=== PATIENT | male | born 1955 | race Caucasian/White ===

== ENCOUNTER 2024-01-24 09:00 | Day surgery (SDC) | payer MEDICARE, SELFPAY ==
--- NOTE | ~2024-01-24 | FL_ITS ---
FLUOROSCOPIC GUIDED LUMBAR PUNCTURE INDICATION: Neuropathy TECHNIQUE: Risks and benefits and possible complications were discussed with the patient and the consent form was signed. Patient was placed prone on the fluoroscopy table. The back was prepped and draped in routine sterile fashion. Betadine was used as a skin antiseptic. Utilizing fluoroscopic guidance, the L4-5 interlaminar space was accessed with a 22 gague quinkie spinal needle and clear CSF fluid obtained. Opening pressure was 12 cm H2O. 8 cc of fluid was sent for analysis. The needle was removed without immediate complications. Total fluoroscopy time: 53 seconds DAP: 623.2 uGym^2 FL/FL guided lumbar puncture LP IMPRESSION: Successful fluoroscopic guided lumbar puncture This procedure was performed by David Howell PA-C and supervised by Dr. Goff. Electronically signed by: Fran Goff MD 01/27/2024 03:11 PM EDT
[2024-01-24 09:32] LABS: MANUAL DIFF FLAG NO
[2024-01-24 09:34] LABS: Glucose, Whole Blood 275 mg/dL (60-115)
[2024-01-24 09:36] LABS: Basophils Absolute Auto 0.1 X10*3/uL (0.0-0.2); Basophils Percent Auto 0.9 % (0-2); Eosinophils Absolute Auto 0.1 X10*3/uL (0.0-0.4); Eosinophils Percent Auto 2.3 % (0-4); Hematocrit 43.1 % (42.0-52.0); Hemoglobin 14.8 g/dl (14.0-18.0); Imm Gran Abs Auto 0.01 X10*3/uL (0.00-0.03); Imm Gran Pct Auto 0.2 % (0.0-0.4); Lymphocytes Absolute Auto 1.9 X10*3/uL (1.2-4.9); Lymphocytes Percent Auto 33.7 % (20-40); Mean Corpuscular HGB Conc 34.3 g/dl (31.0-36.0); Mean Corpuscular Hemoglobin 31.2 pg (27.0-33.0); Mean Corpuscular Volume 90.7 fL (80.0-98.0); Mean Platelet Volume 10.2 fL (9.4-12.4); Monocytes Absolute Auto 0.4 X10*3/uL (0.1-1.2); Monocytes Percent Auto 6.1 % (2-11); Neutrophils Absolute Auto 3.3 x10*3/uL (2.0-8.3); Neutrophils Percent Auto 56.8 % (45-73); Platelet Count 137 X10*3/uL (160-400); Red Blood Count 4.75 X10*6/uL (4.60-5.80); Red Cell Distribution Width 13.3 % (11.0-16.0); White Blood Count 5.8 X10*3/uL (4.8-10.8)
[2024-01-24 09:43] LABS: INTERNATIONAL NORM RATIO 0.9 (0.9-1.1); Prothrombin Time 10.5 SEC (10.9-12.4)
[2024-01-24 09:46] LABS: Partial Thromboplastin Time 32.7 SEC (26.0-36.8)
[2024-01-24 11:45] VITALS: BP 142/89; PULSE 82; RESP 18; TEMP 36.6; O2SAT 97
[2024-01-24 12:00] VITALS: BP 142/88; PULSE 80; RESP 18; O2SAT 97
[2024-01-24 12:15] VITALS: BP 145/91; PULSE 81; RESP 18; O2SAT 95
[2024-01-24 12:30] VITALS: BP 150/81; PULSE 79; RESP 18; O2SAT 95
[2024-01-24 12:45] VITALS: BP 154/84; PULSE 76; RESP 18; TEMP 36.6; O2SAT 97
[2024-01-24 13:39] LABS: Glucose CSF 97 mg/dL; Total Protein CSF 66.4 mg/dL (15-45)
[2024-01-24 13:45] LABS: CSF Appearance Clear, Colorless; CSF Tube # 1
[2024-01-24 14:04] LABS: Appearance CSF CLEAR; CSF Tube # 4; Color CSF COLORLESS; Red Blood Cell CSF 20 MM*3; White Blood Cell CSF 7 MM*3
[2024-01-24 14:05] LABS: CSF Monos 29 %; Lymphocytes CSF 71 %
[2024-01-27 10:59] LABS: Oligoclonal Serum Yes
[2024-01-28 18:19] LABS: Oligoclonal Banding Absent (Absent)
[2024-01-28 22:49] LABS: Albumin 4.2 g/dL (3.6-5.1); Albumin, CSF 42.1 mg/dL (8.0-42.0); IgG 795 mg/dL (600-1540); IgG, CSF 2.7 mg/dL (0.8-7.7)
== END 2024-01-24 13:08 | disposition home or self-care (01) ==
PROVIDERS: Physician Assistant Surgical; Visit Provider Psychiatry & Neurology Neurology
PROC: 009U3ZZ Drainage of Spinal Canal, Percutaneous Approach (ICD-10-PCS; CPT 62270; principal; 2024-01-24 11:00)
DX: G62.9 Polyneuropathy, unspecified (principal); G60.0 Hereditary motor and sensory neuropathy; R26.89 Other abnormalities of gait and mobility; H54.8 Legal blindness, as defined in USA; G43.009 Migraine without aura, not intractable, without status migrainosus; D69.6 Thrombocytopenia, unspecified; I10 Essential (primary) hypertension; E11.9 Type 2 diabetes mellitus without complications; Z79.4 Long term (current) use of insulin; Z79.899 Other long term (current) drug therapy
CPT/HCPCS: 36415; 62328; 82042; 82945; 82947; 83916; 84157; 85025; 85610; 85730; 87015; 87070; 87205; 89051

== ENCOUNTER → 2024-01-24 11:10 | Outpatient (BNV) | payer MEDICARE, SELFPAY | PROVIDERS: Visit Provider Radiology Diagnostic Radiology | DX: G62.9 Polyneuropathy, unspecified (principal) | CPT/HCPCS: 62328 ==

== ENCOUNTER 2024-03-31 13:29 | Outpatient (REF) | payer MEDICARE, MEDICAID, SELFPAY ==
[2024-03-31 15:03] LABS: Erythrocyte Sedimentation Rate 11 MM/HR (0-15)
[2024-04-01 05:02] LABS: Syphilis Screen Nonreactive (Nonreactive)
[2024-04-01 05:37] LABS: HBS Num1 0.53 mIU/mL (0-7.99); HBc Num1 0.05 S/CO (0.00-0.79); HBsAGNum1 0.53 S/CO (0.00-0.99); HIV AB/AG Nonreactive (Nonreactive); HIV Num 1 0.05 S/CO (0.00-0.99); Hepatitis A Antibody IgM 0.14 Index (0-0.79); Hepatitis B Core Antibody Nonreactive (Nonreactive); Hepatitis B Surface Antigen Negative (Negative); ~HepC Num1 0.05 S/CO (0.00-0.79); ~Hepatitis A Antibody IgM Nonreactive (Nonreactive); ~Hepatitis B Surface Antibody NONREACTIVE (Nonreactive); ~Hepatitis C Antibody Nonreactive (Nonreactive)
[2024-04-01 17:54] LABS: Lyme Abs Screen <0.90 index
[2024-04-02 09:39] LABS: Anti Nuclear Antibody Screen NEGATIVE (NEGATIVE)
== END 2024-03-31 13:30 | disposition home or self-care (01) ==
LOC: HO.LAB 13:29
PROVIDERS: PCP Internal Medicine; Visit Provider Psychiatry & Neurology Neurology
DX: G61.81 Chronic inflammatory demyelinating polyneuritis (principal)
CPT/HCPCS: 36415; 85652; 86038; 86617; 86618; 86704; 86706; 86709; 86780; 86803; 87340; 87389

== ENCOUNTER 2024-08-25 12:01 | Outpatient (REF) | payer MEDICARE, MEDICAID, SELFPAY ==
[2024-08-25 12:38] LABS: MANUAL DIFF FLAG NO
[2024-08-25 13:09] LABS: Basophils Percent Auto 0.4 % (0-2); Eosinophils Absolute Auto 0.1 X10*3/uL (0.0-0.4); Eosinophils Percent Auto 0.7 % (0-4); Hematocrit 45.1 % (42.0-52.0); Hemoglobin 14.7 g/dl (14.0-18.0); Imm Gran Abs Auto 0.16 X10*3/uL (0.00-0.03); Imm Gran Pct Auto 1.8 % (0.0-0.4); Lymphocytes Absolute Auto 1.2 X10*3/uL (1.2-4.9); Lymphocytes Percent Auto 12.9 % (20-40); Mean Corpuscular HGB Conc 32.6 g/dl (31.0-36.0); Mean Corpuscular Hemoglobin 30.7 pg (27.0-33.0); Mean Corpuscular Volume 94.2 fL (80.0-98.0); Mean Platelet Volume 10.8 fL (9.4-12.4); Monocytes Absolute Auto 0.5 X10*3/uL (0.1-1.2); Monocytes Percent Auto 5.6 % (2-11); Neutrophils Absolute Auto 7.1 x10*3/uL (2.0-8.3); Neutrophils Percent Auto 78.6 % (45-73); Platelet Count 128 X10*3/uL (160-400); Red Blood Count 4.79 X10*6/uL (4.60-5.80); Red Cell Distribution Width 15.3 % (11.0-16.0)
[2024-08-25 13:17] LABS: Estimated Average Glucose 148 mg/dL; Hemoglobin A1C 191.3736 umol/L; Hemoglobin A1c % 6.8 % (<6.0); Total Hemoglobin (HGBA1C) 3785.1598 umol/L
[2024-08-25 13:37] LABS: Bacteria Urine None Seen (None Seen); Hyaline Casts Urine 0-2 /LPF (0-2); RBC Urine 0-2 /HPF (0-2); Squamous Epithelial Cell Urine 0-2 /HPF (0-2); WBC Urine 0-5 /HPF (0-5)
[2024-08-25 13:39] LABS: INTERNATIONAL NORM RATIO 0.9 (0.9-1.1); Prothrombin Time 10.7 SEC (10.9-12.4)
[2024-08-25 13:42] LABS: Partial Thromboplastin Time 32.4 SEC (26.0-36.8)
[2024-08-25 13:55] LABS: Anion Gap 11 (12-20); Blood Urea Nitrogen 34 mg/dL (9-16); Calcium 9.4 mg/dL (8.4-10.2); Carbon Dioxide 23 mmol/L (22-29); Chloride 111 mmol/L (96-108); Estimated Glomerular Filt Rate 39; Glucose Random 256 mg/dL (60-115); Potassium 4.1 mmol/L (3.3-5.1); Sodium 141 mmol/L (135-145)
--- OUTSIDE RECORDS SUMMARY | 2024-08-25 14:09 | XMS_ITS | Clinical Summary ---
Author Organization 175 [facility] Address [address] [place] [address] Phone Care Team Providers Care De[employer] Name Role Phone Kailash Hester MD Primary Care Provider [phone] Allergies No known active allergies Medications aspirin 81 mg EC tablet 81 mg daily. 7 Active pen needle, diabetic 32 gauge x / needle 9 Active multivitamin (DAILY VITAMIN ORAL) CALCIUM-VITAMIN D-VITAMIN K (CALCIUM + D + K) 750-500-40 MG-UNT-MCG TAB daily. 7 Active coenzyme Q-10 10 mg capsule Take by mouth daily. Active multivit-min/fo lic acid/lutein (CENTRUM SILVER ORAL) TAKE 1 TABLET DAILY. 7 Active NIACIN, BULK, MISC Take 100 mg by mouth daily. Active atorvastatin (LIPITOR) 40 mg tablet TAKE 1 TABLET EVERY DAY 3 Active bisacodyL (DULCOLAX) 5 mg EC tablet Take 2 tabs by mouth right before beginning bowel prep. Follow instructions given by office for timing. 4 Active calcium carbonate EX (Antacid Extra-Strength) 300 mg (750 mg) chewable tablet Take 1 tablet by mouth daily. Active cholecalciferol (VITAMIN D-3) 25 mcg (1,000 unit) tablet Take by mouth daily. Active cyanocobalamin (VITAMIN B-12) 1,000 mcg tablet Take 1,000 mcg by mouth daily. Active glucose 4 gram chewable tablet 4 g. 6 Active diclofenac (VOLTAREN) 1 % topical gel Apply 1 g topically 3 times daily. 4 Active empagliflozin (Jardiance) 10 mg tablet Take 10 mg by mouth daily. 3 Active fenofibrate (TRICOR) 48 mg tablet TAKE 1 TABLET BY MOUTH EVERY DAY 9 Active florbetapir, F-18, (Amyvid) 10 mCi (370 MBq) solution Inject into the vein every 30 days. Active fluticasone propionate (FLONASE) 50 mcg/actuation nasal spray SPRAY 2 SPRAYS INTO EACH NOSTRIL EVERY DAY FOR 14 DAYS 4 Active gabapentin (NEURONTIN) 600 mg tablet 2 times daily. 9 Active Glucagon HCl, rDNA, (Glucagon Emergency Kit, human,) 1 mg injection 1 mg. 6 Active insulin aspart (NovoLOG U-100 Insulin aspart) 100 unit/mL injection Inject 14 Units into the skin 3 times daily (before meals). Sliding scale Active insulin glargine (Lantus Solostar U-100 Insulin) 100 unit/mL (3 mL) injection pen Inject 32 Units into the skin every morning. 44 units at HS 9 Active liraglutide (Victoza 2-Jaime) 0.6 mg/0.1 mL (18 mg/3 mL) injection 9 Active lisinopriL (PRINIVIL,ZESTR IL) 5 mg tablet Take 1 Tablet by mouth daily. Active memantine (NAMENDA) 10 mg tablet TAKE 1 TABLET BY MOUTH TWICE A DAY FOR MEMORY 8 Active pantoprazole (PROTONIX) 40 mg EC tablet TAKE 1 TABLET BY MOUTH EVERY DAY 3 Active topiramate (TOPAMAX) 200 mg tablet Take 200 mg by mouth at bedtime as needed. Active metoclopramide (REGLAN) 5 mg tablet Take 1 tablet (5 mg total) by mouth 4 (four) times a day (before meals and nightly). 120 each 3 5 05/20/19 26 Active ergocalciferol (VITAMIN D-2) 1,250 mcg (50,000 unit) capsule Take 1 capsule (50,000 Units total) by mouth 1 (one) time per week. 12 each 5 08/06/19 26 Active Active Problems Problem Noted Date Diagnosed Date Overweight (BMI 25.0-29.9) 07/28/2024 Atypical chest pain 05/09/2022 Cortical senile cataract of right eye 04/19/2020 Right bundle branch block (RBBB) 04/19/2020 Hyperplastic polyp of stomach 09/19/2018 SSBE (short-segment Isidro's esophagus) 019 Carpal tunnel syndrome 03/25/2018 DM (diabetes mellitus), type 2 with peripheral vascular complications ([facility] V24, [facility] V28) 03/25/2018 Type 2 diabetes mellitus wit h renal manifestations ([facility] V24, [facility] V28) 03/25/2018 Chronic kidney disease (CKD) 01/09/2018 Hypertension 01/09/2018 Memory change 08/09/2017 Migraines 08/09/2017 Obstructive sleep apnea 07/31/2017 Overview (03/24/2024): BIPAP 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 Legally blind 05/28/2017 Diabetes mellitus type 2 wit h neurological manifestations ([facility] V24, [facility] V28) 03/04/2017 Diabetic neuropathy ([facility] V24, [facility] V28) 1 05/04/2016 GERD (gastroesophageal reflux disease) 7 Hyperlipidemia 03/04/2017 Vitamin D deficiency 12/10/2016 Hearing difficulty, bilateral 10/18/2016 Tinnitus 10/18/2016 Anxiety 06/10/2016 Attention-deficit/hyperactivity disorder 017 Extremity atherosclerosis wi th intermittent claudication ([facility] V24) 06/10/2016 Tubular adenoma of colon 06/10/2016 Benign prostate hyperplasia 02/10/2016 Fatty liver 02/10/2016 Depression 11/10/2015 Encounters Date Type Department Care Team Description 07/28/2024 10:00 AM EDT Telemedicine Bariatric Surgery - [address] [place] [id number] Overweight (BMI 25.0-29.9) (Primary Dx) 07/24/2024 8:50 AM EDT Lab Draw Station [address] [address] Gastroesophageal reflux disease without esophagitis; Vitamin D deficiency, unspecified; Diabetes mellitus due to underlying condition without complication, unspecified whether retirement insulin use ([facility] V24, [facility] V28); 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, unspecified whether sounding device operator insulin use ([facility] V24) 07/17/2024 11:00 AM EDT Office Visit Bariatric Surgery - [address] [place] [address] Flori Malagon MD Overweight (BMI 25.0-29.9) (Primary Dx); Gastroesophageal reflux disease without esophagitis; SSBE (short-segment Isidro's esophagus); Gastroparesis; DM (diabetes mellitus), type 2 with peripheral vascular complications ([facility] V24, [facility] V28); Chronic kidney disease, unspecified CKD stage; 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, unspecified whether sounding device operator insulin use ([facility] V24); Diabetes mellitus due to underlying condition without complication, unspecified whether sounding device operator insulin use ([facility] V24, [facility] V28); Vitamin D deficiency, unspecified from Last 3 Months Immunizations Name Administration Dates Next Due Hepatitis A-Hepatitis B Adult (Twinrix) 18yo and older 04/29/2013 Influenza trivalent, 0.5mL (Fluad) 65yo and olde r 02/23/2022 Pneumococcal polysaccharide 23 valent (Pneumovax 23) 2yo and older 04/29/2013 Tdap Tetanus diptheria acell ular pertussis (Boostrix; Adacel) 7yo and older 02/10/2016 Zoster Live 04/29/2014 Surgical History Surgery Date Site/Laterality Comments CHOLECYSTECTOMY PROCEDURE: HISTORICAL CHOLECYSTECTOMY COLONOSCOPY PROCEDURE: HISTORICAL COLONOSCOPY BACK SURGERY PROCEDURE: HISTORICAL BACK SURGERY CARPAL TUNNEL RELEASE PROCEDURE: HISTORICAL CARPAL TUNNEL REL Medical History Medical History Date Comments Anxiety 06/10/2016 DX:Anxiety Attention-deficit/hyperactiv ity disorder 06/10/2016 DX:Attention-deficit/hyperac tivity disorder Benign prostate hyperplasia 02/10/2016 DX:B enign prostate hyperplasia Carpal tunnel syndrome 03/25/2018 DX:Carpal tunnel syndrome Chronic kidney disease (CKD) 01/09/2018 DX: Chronic kidney disease (CKD) 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 DX:Congenit al nystagmus Depression 11/10/2015 DX:Depression Diabetes mellitus type 2 wit h neurological manifestations ([facility] V24, [facility] V28) 03/04/2017 DX:Diabetes mellitus type 2 with neurological manifestations (HCC) Diabetic neuropathy (CMS/HCC V24, [facility] V28) 03/04/2017 DX:Diabetic neuropathy (HCC) DM (diabetes mellitus), type 2 with peripheral vascular complications ([facility] V24, [facility] V28) 03/25/2018 DX:DM (diabetes mellitus), type 2 with peripheral vascular complications (HCC) Extremity atherosclerosis wi th intermittent claudication ([facility] V24) 06/10/2016 DX:Extremity atherosclerosis with intermittent claudication (HCC) Fatty liver 02/10/2016 DX:Fatty liver GERD (gastroesophageal reflu x disease) 03/04/2017 DX:GERD (gastroesophageal re flux disease) Hearing difficulty, bilateral 10/18/2016 DX :Hearing difficulty, bilateral Hyperlipidemia 03/04/2017 DX:Hyperlipidemi a Hypertension 01/09/2018 DX:Hypertension Legally blind 05/28/2017 DX:Legally blind Memory change 08/09/2017 DX:Memory change Migraines 08/09/2017 DX:Migraines Obstructive sleep apnea 07/31/2017 DX:Obstr uctive sleep apnea; COMMENT: BIPAP Tinnitus 10/18/2016 DX:Tinnitus Tubular adenoma of colon 06/10/2016 DX:Tubu lar adenoma of colon Type 2 diabetes mellitus wit h renal manifestations ([facility] V24, [facility] V28) 03/25/2018 DX:Type 2 diabetes mellitus with renal manifestations (HCC) Vitamin D deficiency 12/10/2016 DX:Vitamin D deficiency Social History Tobacco Use Types Packs/Day Years Used Date Smoking Tobacco: Never Smokeless Tobacco: Never Alcohol Use Standard Drinks/Week Comments Not Currently 0 (1 standard drink = 0.6 oz pur e alcohol) Sex and Gender Information Value Date Recorded Sex Assigned at Not on file Legal Sex Male 2:35 AM EST Gender Identity Not on file Sexual Orientation Not on file Obstetrics History Last Filed Vital Signs Vital Sign Reading Time Taken Comments Blood Pressure 121/75 07/17/2024 11:28 AM EDT Pulse 86 07/17/2024 11:28 AM EDT Temperature 36.5 ??C (97.7 ??F) 07/17/2024 11:28 AM E DT Respiratory Rate - - Oxygen Saturation 99% 07/17/2024 11:28 AM EDT Inhaled Oxygen Concentration - - Weight 86.6 kg (191 lb) 07/28/2024 10:00 AM EDT Height 175.3 cm (5' 9 ) 07/17/2024 11:28 AM EDT Body Mass Index 28.21 07/17/2024 11:28 AM EDT Plan of Treatment Upcoming Encounters Date Type Department Care Team (Late st Contact Info) Description 09/01/2024 10:00 AM EDT Telemedicine Bariatric Surgery - [place] [address] [phone] [phone] 11/12/2024 2:00 PM EDT Office Visit Bariatric Surgery - [place] [address] [phone] Sheila Zarco MD [address] [phone] Health Maintenance Due Date Last Done Comments COVID-19 Vaccine (#1) 1960 Diabetes: Annual Foot Exam 09/01/1963 Diabetes: Annual Retina Eye Exam 09/01/1963 Hepatitis B Vaccines (2 of 3 - Hep B Twinrix 3-dose series) 05/27/2013 04/29/2013 RSV Immunization Adult Patients (1 - Risk 60-74 years 1-dose series) 2013 Zoster Vaccines (2 of 3) 06/24/2014 04/29/2014 Pneumococcal Vaccine: 50+ Years (2 of 2 - PCV) 02/06/2020 02/05/2019, 04/29/2013 Falls Risk Assessment 04/07/2022 Hepatitis C Screening 04/07/2022 Social Influencers of Health Screening 04/07/2022 Depression Screening 07/14/2024 07/15/2023 Medicare Annual Wellness Visit 07/14/2024 07/15/2023 Diabetes: Blood Sugar Control Test (HGBA1C) 10/29/2024 05/01/2024, 02/23/2022, 09/26/2021 Influenza Vaccine (Season Ended) 2024 01/11/2023, 02/23/2022, 01/14/2021, Additional history exists Diabetes: Annual Urine Albumin-Creatinine Ratio (uACR) 05/01/2025 05/01/2024, 12/06/2023, 01/31/2021 Diabetes: Annual GFR (Glomerular Filtration Rate) 05/01/2025 05/01/2024, 05/01/2024, 12/06/2023, Additional history exists Hypertension/CHF/CAD Annual BMP Blood Test 05/01/2025 05/01/2024, 05/01/2024, 12/06/2023, Additional history exists DTaP,Tdap,and Td Vaccines (2 - Td or Tdap) 02/09/2026 02/10/2016 Colorectal Cancer Screening: Colonoscopy 02/23/2029 02/24/2024 Cholesterol Screening (Lipid Panel) 05/01/2029 05/01/2024, 02/23/2022 Hepatitis A Vaccines Aged Out 04/29/2013 No long er eligible based on patient's age to complete this topic HIB Vaccines Aged Out No longer eligi ble based on patient's age to complete this topic HPV Vaccines Aged Out No longer eligi ble based on patient's age to complete this topic IPV Vaccines Aged Out No longer eligi ble based on patient's age to complete this topic MMR Vaccines Aged Out No longer eligi ble based on patient's age to complete this topic Meningococcal ACWY Vaccine Aged Out N o longer eligible based on patient's age to complete this topic Meningococcal B Vaccine Aged Out No l onger eligible based on patient's age to complete this topic RSV Immunization Patients Under 20 months Aged Out No longer eligible based on patient's age to complete this topic Varicella Vaccines Aged Out No longer eligible based on patient's age to complete this topic Procedures Procedure Name Priority Date/Time Associated Diagnosis Comments CBC WITH AUTO DIFFERENTIAL Routine 07/24/2024 8:57 AM EDT Gastroesophageal reflux disease without esophagitis CBC AND DIFFERENTIAL Routine 07/24/2024 8:57 AM EDT Gastroesophageal reflux disease without esophagitis CORTISOL Routine 07/24/2024 8:57 AM EDT Gastroesophageal reflux disease without esophagitis FERRITIN Routine 07/24/2024 8:57 AM EDT Gastroesophageal reflux disease without esophagitis 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, unspecified whether sounding device operator insulin use ([facility] V24) FOLATE Routine 07/24/2024 8:57 AM EDT Gastroesophageal reflux disease without esophagitis INSULIN, TOTAL Routine 07/24/2024 8:57 AM EDT Gastroesophageal reflux disease without esophagitis IRON AND TIBC Routine 07/24/2024 8:57 AM EDT Gastroesophageal reflux disease without esophagitis Diabetes mellitus due to underlying condition without complication, unspecified whether sounding device operator insulin use ([facility] V24, [facility] V28) PARATHYROID HORMONE INTACT Routine 07/24/2024 8:57 AM EDT Gastroesophageal reflux disease without esophagitis URIC ACID Routine 07/24/2024 8:57 AM EDT Gastroesophageal reflux disease without esophagitis VITAMIN B1 Routine 07/24/2024 8:57 AM EDT Gastroesophageal reflux disease without esophagitis VITAMIN B12 Routine 07/24/2024 8:57 AM EDT Gastroesophageal reflux disease without esophagitis VITAMIN D 25 HYDROXY Routine 07/24/2024 8:57 AM EDT Gastroesophageal reflux disease without esophagitis Vitamin D deficiency, unspecified HM COLONOSCOPY Routine 02/24/2024 ANNUAL BMP BLOOD TEST Routine 12/06/2023 DEPRESSION SCREENING Routine 07/15/2023 HEMOGLOBIN A1C Routine 02/23/2022 LIPID PANEL Routine 02/23/2022 URINE ALBUMIN CREATININE RATIO Routine 01/31/2021 from Last 3 Months or Most Recently Relevant to Health Maintenance Results * (ABNORMAL) CBC auto differential (07/24/2024 8:57 AM EDT) [facility] WBC 7.4 4.8 - 10.8 K/mcL LAB HEMETOLOGY METHOD 07/24/2024 10:45 AM [facility] RBC 5.20 4.50 - 5.50 M/mcL LAB HEMETOLOGY METHOD 07/24/2024 10:45 AM [facility] Hemoglobin 15.8 13.5 - 17.5 g/dL LAB HEMETOLOGY METHOD 07/24/2024 10:45 AM [facility] Hematocrit 48.6 42.0 - 54.0 % LAB HEMETOLOGY METHOD 07/24/2024 10:45 AM [facility] MCV 93.8 79.0 - 98.0 FL LAB HEMETOLOGY METHOD 07/24/2024 10:45 AM [facility] MCH 30.5 27.0 - 32.0 pcg LAB HEMETOLOGY METHOD 07/24/2024 10:45 AM [facility] MCHC 32.5 32.0 - 37.0 g/dL LAB HEMETOLOGY METHOD 07/24/2024 10:45 AM [facility] RDW 14.2 11.0 - 15.0 % LAB HEMETOLOGY METHOD 07/24/2024 10:45 AM [facility] Platelets 129(L) 130 - 400 K/mcL LAB HEMETOLOGY METHOD 07/24/2024 10:45 AM [facility] MPV 11.2(H) 7.0 - 11.0 FL LAB HEMETOLOGY METHOD 07/24/2024 10:45 AM [facility] NRBC 0.0 <1.0 % LAB HEMETOLOGY METHOD 07/24/2024 10:45 AM [facility] NRBC Absolute 0.00 <0.10 K/mcL LAB HEMETOLOGY METHOD 07/24/2024 10:45 AM [facility] Neutrophils Relative 64.6 % LAB HEMETOLOGY METHOD 07/24/2024 10:45 AM [facility] Lymphocytes Relative 24.8 % LAB HEMETOLOGY METHOD 07/24/2024 10:45 AM [facility] Monocytes Relative 8.5 % LAB HEMETOLOGY METHOD 07/24/2024 10:45 AM [facility] Eosinophils Relative 1.1 % LAB HEMETOLOGY METHOD 07/24/2024 10:45 AM [facility] Basophils Relative 0.5 % LAB HEMETOLOGY METHOD 07/24/2024 10:45 AM [facility] Immature Granulocytes Relative 0.5 % LAB HEMETOLOGY METHOD 07/24/2024 10:45 AM [facility] Neutrophils Absolute 4.77 1.50 - 7.00 K/mcL LAB HEMETOLOGY METHOD 07/24/2024 10:45 AM [facility] Lymphocytes Absolute 1.83 1.00 - 5.00 K/mcL LAB HEMETOLOGY METHOD 07/24/2024 10:45 AM [facility] Monocytes Absolute 0.63 0.20 - 1.00 K/mcL LAB HEMETOLOGY METHOD 07/24/2024 10:45 AM [facility] Eosinophils Absolute 0.08 0.00 - 0.50 K/mcL LAB HEMETOLOGY METHOD 07/24/2024 10:45 AM [facility] Basophils Absolute 0.04 0.00 - 0.20 K/mcL LAB HEMETOLOGY METHOD 07/24/2024 10:45 AM EDT [facility] Immature Granulocytes Absolute 0.04(H) 0.00 - 0.03 K/mcL LAB HEMETOLOGY METHOD 07/24/2024 10:45 AM EDT [facility] Blood Venous blood specimen / Unknown Venipuncture / Unknown 07/24/2024 8:57 AM EDT 07/24/2024 8:57 AM EDT Flori Malagon MD LAB BLOOD ORDERABLES Fi nal Result Performing Organization Address [facility]/State/ZIP Co de Phone Number [facility] [address] [place] [address], * Iron and TIBC (07/24/2024 8:57 AM EDT) Iron 88 50 - 160 mcg/dL LAB CHEMISTRY METHOD 07/24/2024 1:47 PM EDT [facility] TIBC 335 250 - 450 mcg/dL LAB CHEMISTRY METHOD 07/24/2024 1:47 PM EDT [facility] Iron Saturation 26 20 - 50 % LAB CHEMISTRY METHOD 07/24/2024 1:47 PM EDT [facility] Blood Venous blood specimen / Unknown Venipuncture / Unknown 07/24/2024 8:57 AM EDT 07/24/2024 8:57 AM EDT Flori Malagon MD LAB BLOOD ORDERABLES Fi nal Result [facility] [address] [place] [address], * (ABNORMAL) Insulin, total (07/24/2024 8:57 AM EDT) Insulin 34.1(H) 3.0 - 25.0 mcIU/mL LAB CHEMISTRY METHOD 07/24/2024 2:22 PM EDT [facility] Blood Venous blood specimen / Unknown Venipuncture / Unknown 07/24/2024 8:57 AM EDT 07/24/2024 8:57 AM EDT Narrative [facility] - 07/24/2024 2:22 PM EDT Insulin reference range based on fasting status. ??Insulin values vary in non- fasting individuals. us Flori Malagon MD LAB BLOOD ORDERABLES Fi nal Result Performing Organization Address City/[facility] Co de Phone Number [facility] [address] [place] [address], [place] [phone] * (ABNORMAL) Vitamin D 25 hydroxy (07/24/2024 8:57 AM EDT) Vit D, 25-Hydroxy 13.8(L) 30.0 - 80.0 ng/mL LAB CHEMISTRY METHOD 07/24/2024 2:21 PM EDT [facility] Blood Venous blood specimen / Unknown Venipuncture / Unknown 07/24/2024 8:57 AM EDT 07/24/2024 8:57 AM EDT us Flori Malagon MD LAB BLOOD ORDERABLES Fi nal Result Performing Organization Address [facility]/ZIP Co de Phone Number [facility] [address] [place] [address], [place] [phone] * Uric acid (07/24/2024 8:57 AM EDT) Uric Acid 5.8 3.7 - 9.2 mg/dL LAB CHEMISTRY METHOD 07/24/2024 1:17 PM EDT [facility] Blood Venous blood specimen / Unknown Venipuncture / Unknown 07/24/2024 8:57 AM EDT 07/24/2024 8:57 AM EDT us Flori Malagon MD LAB BLOOD ORDERABLES Fi nal Result [facility] [address] [place] [address], * Vitamin B1 (07/24/2024 8:57 AM EDT) Vitamin B1 Whole Blood 81 38 - 122 ug/L 07/29/2024 7:18 AM EDT [facility] Comment: This test was developed and the performance characteristics determined by [facility]. It has not been cleared or approved by the FDA. The laboratory is regulated under CLIA as qualified to perform high-complexity testing. This test is used for patient testing purposes. It should not be regarded as investigational or for research. Test performed at [facility], [address] , [place], [place] ??[address] ? [phone] Autumn Butterfield MD, PhD - Radiology Asst Blood Venous blood specimen / Unknown Venipuncture / Unknown 07/24/2024 8:57 AM EDT 07/24/2024 8:57 AM EDT us Flori Malagon MD LAB BLOOD ORDERABLES Fi nal Result Performing Organization Address City/[facility]/ZIP Co de Phone Number [facility] [address] [facility] [place] [address] * Parathyroid hormone intact (07/24/2024 8:57 AM EDT) Pathologist [facility] PTH 58.2 18.5 - 88.0 pcg/mL LAB CHEMISTRY METHOD 07/24/2024 2:52 PM EDT [facility] Blood Venous blood specimen / Unknown Venipuncture / Unknown 07/24/2024 8:57 AM EDT 07/24/2024 8:57 AM EDT us Flori Malagon MD LAB BLOOD ORDERABLES Fi nal Result [facility] [address] [place] [address], [place] [phone] * Folate (07/24/2024 8:57 AM EDT) [facility] Folate 9.1 2.8 - 17.0 ng/ml LAB CHEMISTRY METHOD 07/24/2024 1:47 PM EDT [facility] Blood Venous blood specimen / Unknown Venipuncture / Unknown 07/24/2024 8:57 AM EDT 07/24/2024 8:57 AM EDT us Flori Malagon MD LAB BLOOD ORDERABLES Fi nal Result [facility] [address] [place] [address], [place] [phone] * Ferritin (07/24/2024 8:57 AM EDT) [facility] Ferritin 50 26 - 388 ng/mL LAB CHEMISTRY METHOD 07/24/2024 1:47 PM EDT [facility] Blood Venous blood specimen / Unknown Venipuncture / Unknown 07/24/2024 8:57 AM EDT 07/24/2024 8:57 AM EDT us Flori Malagon MD LAB BLOOD ORDERABLES Fi nal Result [facility] [address] [place] [address], [place] [phone] * Vitamin B12 (07/24/2024 8:57 AM EDT) [facility] Vitamin B-12 366 250 - 900 pcg/mL LAB CHEMISTRY METHOD 07/24/2024 1:47 PM EDT [facility] Blood Venous blood specimen / Unknown Venipuncture / Unknown 07/24/2024 8:57 AM EDT 07/24/2024 8:57 AM EDT us Flori Malagon MD LAB BLOOD ORDERABLES Fi nal Result Performing Organization Address City/[facility]/ZIP Co de Phone Number [facility] [address] [place] [address], [place] [phone] * Cortisol (07/24/2024 8:57 AM EDT) [facility] Cortisol 16.8 mcg/dL LAB CHEMISTRY METHOD 07/24/2024 2:22 PM EDT [facility] Blood Venous blood specimen / Unknown Venipuncture / Unknown 07/24/2024 8:57 AM EDT 07/24/2024 8:57 AM EDT Narrative [facility] - 07/24/2024 2:22 PM EDT CORTISOL REFERENCE RANGE ?? 8 AM SPEC: ??5.0-23.0 mcg/dL ?? 4 PM SPEC: ??3.0-16.0 mcg/dL ?? 8 PM SPEC: ??<5.0 mcg/dL us Flori Malagon MD LAB BLOOD ORDERABLES Fi nal Result Performing Organization Address City/[facility] Co de Phone Number [facility] [address] [place] [address], [place] [phone] * Colonoscopy (02/24/2024) [facility] Colonoscopy No Interpretation , Abstracted Anatomical Region Laterality Modality Other Historical Provider HEALTH MAINTENANCE Final Result * Annual BMP Blood Test (12/06/2023) [facility] Annual BMP Blood Test Abstracted Historical Provider HEALTH MAINTENANCE Final Result * Depression Screening (07/15/2023) [facility] Depression Screening Abstracted Historical Provider HEALTH MAINTENANCE Final Result * (ABNORMAL) Hemoglobin A1c (02/23/2022) Hemoglobin A1C 9.8(A) <=6.5 % Blood Venous blood specimen / Unknown Historical Provider LAB BLOOD ORDERABLES Stella l Result * (ABNORMAL) Lipid panel (02/23/2022) LDL/HDL Ratio 5(A) 0 - 4 Triglycerides 224(A) 0 - 150 mg/dL Cholesterol 193 0 - 200 mg/dL HDL 38(A) >=40 mg/dL LDL Cholesterol 111(A) 0 - 100 mg/dL Blood Venous blood specimen / Unknown [facility] Provider LAB BLOOD ORDERABLES Stella l Result * HM Urine Albumin Creatinine Ratio (01/31/2021) HM Urine Albumin Creatinine Ratio Abstracted [facility] Provider HEALTH MAINTENANCE Final Result from Last 3 Months or Most Recently Relevant to Health Maintenance Insurance MEDICARE MEDICAID - [place] Advance Directives Documents on File Type Date Recorded Patient College Football Coach Expl anation Health Care Decision (hx) 05/25/2013 AD BARROW DIRECTIVE Health Care Decision (hx) 05/25/2013 AD BARROW DIRECTIVE Health Care Decision (hx) 05/25/2013 AD BARROW DIRECTIVE Health Care Decision (hx) 05/25/2013 AD BARROW DIRECTIVE Health Care Decision (hx) 05/25/2013 AD BARROW DIRECTIVE Health Care Decision (hx) 05/25/2013 AD BARROW DIRECTIVE Health Care Decision (hx) 05/25/2013 AD BARROW DIRECTIVE Health Care Decision (hx) 05/11/2013 AD BARROW DIRECTIVE Health Care Decision (hx) 05/11/2013 AD BARROW DIRECTIVE Health Care Decision (hx) 05/11/2013 AD BARROW DIRECTIVE Health Care Decision (hx) 05/11/2013 AD BARROW DIRECTIVE Health Care Decision (hx) 05/11/2013 AD BARROW DIRECTIVE Health Care Decision (hx) 05/11/2013 AD BARROW DIRECTIVE Health Care Decision (hx) 05/11/2013 AD BARROW DIRECTIVE Care Teams Deckhand Fishing Vessel Relationship Specialty Start Date End Date Kailash Hester MD [address] [place] [address] PCP - General Internal Medicine 05/15/24
--- OUTSIDE RECORDS SUMMARY | 2024-08-25 14:09 | XMS_ITS | Encounter Summary ---
Author Organization [facility] Address [address] [place] [address] Care Team Providers Care Caregiver Services Home Name Role Phone Kailash Hester MD Primary Care Provider [phone] Hector Agee MD Unavailable [phone] Encounter Details Date Type Department Care Team Description 03/29/2020 Hospital Medical Records [address] [place] [address] Jaquan King MD [address] [place] [address] Social History Tobacco Use Types Packs/Day Years Used Date Smoking Tobacco: Never Passive Smoke Exposure: Past Smokeless Tobacco: Never Alcohol Use Standard Drinks/Week Comments Not Currently 0 (1 standard drink = 0.6 oz pur e alcohol) socially Sex Assigned at Date Recorded Not on file Job Start Date Occupation Industry Not on file Not on file Not on file COVID-19 Exposure Response Date Recorded In the last month, have you been in contact with someone who was confirmed or suspected to have Coronavirus / COVID-19? No / Unsure 03/21/2020 9:43 AM EST documented as of this encounter Plan of Treatment Not on file documented as of this encounter Visit Diagnoses Not on filedocumented in this encounter Care Teams Caregiver Services Home Relationship Specialty Start Date End Date Kailash Hester MD PCP - General Internal Medicine 03/07/18 Hector Agee MD Specialist Cardiology 03/05/22 documented as of this encounter
--- OUTSIDE RECORDS SUMMARY | 2024-08-25 14:09 | XMS_ITS | Encounter Summary ---
Author Organization [facility], Address [address] [place] [address] Phone Care Team Providers Care Groundman/Lineman Name Role Phone Kailash Hester MD Primary Care Provider [phone] Reason for Visit * Reason Comments Med Refill Encounter Details Date Type Department Care Team (Late st Contact Info) Description 12/19/2019 Refill [facility] [address] [place] [address] Alin Kitchen MD [address] [place] [place] [phone] Social History Tobacco Use Types Packs/Day Years Used Date Smoking Tobacco: Never Alcohol Use Standard Drinks/Week Comments No 0 (1 standard drink = 0.6 oz pur e alcohol) Sex and Gender Information Value Date Recorded Sex Assigned at Not on file Legal Sex Male 4:36 PM EST Gender Identity Not on file Sexual Orientation Not on file documented as of this encounter Plan of Treatment Not on file documented as of this encounter Visit Diagnoses Not on filedocumented in this encounter Care Teams Groundman/Lineman Relationship Specialty Start Date End Date Kailash Hester MD [address] [place] [address] PCP - General Internal Medicine 04/04/23 documented as of this encounter
--- OUTSIDE RECORDS SUMMARY | 2024-08-25 14:09 | XMS_ITS | Encounter Summary ---
Author Organization [facility], Address [address] [place] [address] Phone Care Team Providers Care Creel Selector Name Role Phone Kailash Hester MD Primary Care Provider [phone] Encounter Details Date Type Department Care Team (Late st Contact Info) Description 05/28/2023 Documentation Only [facility], [address] [place] [address] [place], [place] [address] [place] [address] Social History Tobacco Use Types Packs/Day Years [...] on filedocumented in this encounter Care Teams Creel Selector Relationship Specialty Start Date End Date Kailash Hester MD [address] [place] [address] PCP - General Internal Medicine 04/04/23 documented as of this encounter
--- OUTSIDE RECORDS SUMMARY | 2024-08-25 14:09 | XMS_ITS | Encounter Summary ---
Author Organization [facility], Address [address] [place] [address] Phone Care Team Providers Care Electronic Components Assembler Name Role Phone Kailash Hester MD Primary Care Provider [phone] Reason for Visit * Reason Comments Med Refill Encounter Details Date Type Department Care Team (Late st Contact Info) Description 01/05/2020 Refill [facility] [address] [place] [address] Alin Kitchen MD [address] [place] [phone] Social History Tobacco Use Types Packs/Day Years [...] on filedocumented in this encounter Care Teams Electronic Components Assembler Relationship Specialty Start Date End Date Kailash Hester MD [address] [place] [address] PCP - General Internal Medicine 04/04/23 documented as of this encounter
--- OUTSIDE RECORDS SUMMARY | 2024-08-25 14:09 | XMS_ITS | Encounter Summary ---
Author Organization [facility] Address [address] [place] [address] Care Team Providers Care Crane Chaser Name Role Phone Kailash Hester MD Primary Care Provider [phone] Hector Agee MD Unavailable [phone] Encounter Details Date Type Department Care Team Description 06/09/2020 [facility] Medical Records [address] [place], [place] [address] [place] [address] Social History Tobacco Use Types Packs/Day Years Used Date Smoking Tobacco: Never Passive Smoke Exposure: Past Smokeless Tobacco: Never Alcohol Use Standard Drinks/Week Comments Not Currently 0 (1 standard drink = 0.6 oz pur e alcohol) socially Sex Assigned at Date Recorded Not on file Job Start Date Occupation Industry Not on file Not on file Not on file documented as of this encounter Plan of Treatment Not on file documented as of this encounter Procedures Procedure Name Priority Date/Time Associated Diagnosis Comments OUTSIDE NUCLEAR STRESS TEST Routine 06/10/2020 OUTSIDE NUCLEAR STRESS TEST Routine 06/10/2020 OUTSIDE EKG Routine 06/09/2020 OUTSIDE PLAIN FILM Routine 06/09/2020 documented in this encounter Results * OUTSIDE NUCLEAR STRESS TEST (06/10/2020) Provider Default CARDIOLOGY * OUTSIDE NUCLEAR STRESS TEST (06/10/2020) Provider Default CARDIOLOGY * OUTSIDE PLAIN FILM (06/09/2020) Provider Default RADIOLOGY * OUTSIDE EKG (06/09/2020) Provider Default CARDIOLOGY documented in this encounter Visit Diagnoses Not on filedocumented in this encounter Care Teams Crane Chaser Relationship Specialty Start Date End Date Kailash Hester MD PCP - General Internal Medicine 03/07/18 Hector Agee MD Specialist Cardiology 03/05/22 documented as of this encounter
--- OUTSIDE RECORDS SUMMARY | 2024-08-25 14:09 | XMS_ITS | Encounter Summary ---
Author Organization [facility] [place], Address [address] [place] [address] Phone Care Team Providers Care Assurance Manager Insurance Name Role Phone Kailash Hester MD Primary Care Provider [phone] Encounter Details Date Type Department Care Team (Late st Contact Info) Description 03/01/2022 Documentation Only [facility], [address] [place] [address] Bethany [place] PA Social History Tobacco Use Types Packs/Day Years [...] on filedocumented in this encounter Care Teams Assurance Manager Insurance Relationship Specialty Start Date End Date Kailash Hester MD [address] [place] [address] PCP - General Internal Medicine 04/04/23 documented as of this encounter
--- OUTSIDE RECORDS SUMMARY | 2024-08-25 14:09 | XMS_ITS | Encounter Summary ---
Author Organization [facility], Address [address] [place] [address] Phone Care Team Providers Care Probation Manager Name Role Phone Kailash Hester MD Primary Care Provider [phone] Reason for Visit * Reason Comments Med Refill Encounter Details Date Type Department Care Team (Late st Contact Info) Description 11/09/2019 Refill [facility] [address] [place] [address] Alin Kitchen MD [address] [place] [place] [phone] Social History Tobacco Use Types Packs/Day Years [...] on filedocumented in this encounter Care Teams Probation Manager Relationship Specialty Start Date End Date Kialash Hester MD [address] [place] [address] PCP - General Internal Medicine 04/04/23 documented as of this encounter
--- OUTSIDE RECORDS SUMMARY | 2024-08-25 14:09 | XMS_ITS | Encounter Summary ---
Author Organization [facility] Address [address] [place] [address] Care Team Providers Care Manager Cargo Name Role Phone Luisa Lima MD Primary Care Provider Unavailab Kailash Haider MD Primary Care Provider [phone] Hector Agee MD Unavailable [phone] Encounter Details Date Type Department Care Team Description 04/03/2017 Transfer Records Medical Records [address] [place] [address] Abstract, Provider Social History Tobacco Use Types Packs/Day Years Used Date Smoking Tobacco: Never Smokeless Tobacco: Never Alcohol Use Standard Drinks/Week Comments Yes 0 (1 standard drink = 0.6 oz pur e alcohol) socially Sex Assigned at Date Recorded Not on file Job Start Date Occupation Industry Not on file Not on file Not on file documented as of this encounter Plan of Treatment Not on file documented as of this encounter Procedures Procedure Name Priority Date/Time Associated Diagnosis Comments OUTSIDE SLEEP STUDY Routine 12/29/2016 documented in this encounter Results * OUTSIDE SLEEP STUDY (12/29/2016) Provider Abstract PULMONOLOGY documented in this encounter Visit Diagnoses Not on filedocumented in this encounter Care Teams Manager Cargo Relationship Specialty Start Date End Date Luisa Lima MD PCP - General Internal Medicine 01/25/17 03/06/18 Kailash Hester MD PCP - General Internal Medicine 03/07/18 Hector Agee MD Specialist Cardiology 03/05/22 documented as of this encounter
--- OUTSIDE RECORDS SUMMARY | 2024-08-25 14:09 | XMS_ITS | Encounter Summary ---
Author Organization [facility] Address [address] [place] [address] Care Team Providers Care Freelance Data Entry Name Role Phone Kailash Hester MD Primary Care Provider [phone] Hector Agee MD Unavailable Reason for Visit * Reason Onset Date Comments refill request 03/24/2018 Encounter Details Date Type Department Care Team Description 03/24/2018 Telephone Internal Medicine - [address], [address] [place] [address] Kailash Hester MD [address] [place] [address] refill request Social History Tobacco Use Types Packs/Day Years Used Date Smoking Tobacco: Never Smokeless Tobacco: Never Alcohol Use Standard Drinks/Week Comments Yes 0 (1 standard drink = 0.6 oz pur e alcohol) socially Sex Assigned at Date Recorded Not on file Job Start Date Occupation Industry Not on file Not on file Not on file documented as of this encounter Miscellaneous Notes * Telephone Encounter - Linda Muñoz M.A. - 03/25/2018 4:34 PM EST Lv 01/09/18 Nv 06/12/17 .Ready to be printed, signed, and faxed. * Telephone Encounter - Mulu Hinton - 03/24/2018 11:58 AM EST RX REFILLS MED NAME: lipitor DOSAGE: 40 mg # OF TABLETS: INSTRUCTIONS: 1 po daily PHARMACY NAME AND TEL#: [facility] INDICATE WHETHER IT IS: DEXTER WHEN WAS THE PATIENT'S LAST ADULT MEDICINE APPOINTMENT? IS THE DOCTOR HERE TODAY?: YES CAN THE MESSAGE WAIT UNTIL THE DOCTOR RETURNS?: YES HAS PATIENT BEEN TOLD THAT THE PRESCRIPTION WILL NOT BE COMPLETED UNTIL THE END OF THE DAY? YES [place] / [place] / Product Type: MEDICARE [id number] documented in this encounter Plan of Treatment Not on file documented as of this encounter Visit Diagnoses Not on filedocumented in this encounter Care Teams Freelance Data Entry Relationship Specialty Start Date End Date Kailash Hester MD PCP - General Internal Medicine 03/07/18 Hector Agee MD Specialist Cardiology 03/05/22 documented as of this encounter
--- OUTSIDE RECORDS SUMMARY | 2024-08-25 14:09 | XMS_ITS | Encounter Summary ---
Author Organization [facility], Address [address] [place] [address] Phone Care Team Providers Care Public Health Epidemiologist Name Role Phone Kailash Hester MD Primary Care Provider [phone] Reason for Visit * Reason Comments Med Refill Encounter Details Date Type Department Care Team (Late st Contact Info) Description 02/25/2021 Refill [facility] [address] [place] [address] Alin Kitchen MD [address] [phone] Social History Tobacco Use Types Packs/Day Years [...] on filedocumented in this encounter Care Teams Public Health Epidemiologist Relationship Specialty Start Date End Date Kailash Hester MD [address] [place] [address] PCP - General Internal Medicine 04/04/23 documented as of this encounter
--- OUTSIDE RECORDS SUMMARY | 2024-08-25 14:09 | XMS_ITS | Encounter Summary ---
Author Organization [employer] [facility] Address [address] [place] [address] Care Team Providers Care Diagnostic Imaging Manager Name Role Phone Kailash Hester MD Primary Care Provider [phone] Hector Agee MD Unavailable [phone] Encounter Details Date Type Department Care Team Description 06/16/2020 Orders Only Cardio [facility] Diag Testing [address] [facility] [address] [place] [address] Community, Pcp Other chest pain (Primary Dx) Social History Tobacco Use Types Packs/Day Years [...] on file documented as of this encounter Results * COMPLETE ECHO WITH DEFINITY IF CLINICALLY INDICATED (07/11/2020) Pcp Community CARDIOLOGY [facility] documented in this encounter Visit Diagnoses Diagnosis Other chest pain- Primary documented in this encounter Care Teams Diagnostic Imaging Manager Relationship Specialty Start Date End Date Kailash Hester MD PCP - General Internal Medicine 03/07/18 Hector Agee MD Specialist Cardiology 03/05/22 documented as of this encounter
--- OUTSIDE RECORDS SUMMARY | 2024-08-25 14:09 | XMS_ITS | Encounter Summary ---
Author Organization [facility], Address [address] [place] [address] Phone Care Team Providers Care Coat Check Attendant Name Role Phone Kailash Hester MD Primary Care Provider [phone] Encounter Details Date Type Department Care Team (Late st Contact Info) Description 03/01/2022 Documentation Only [facility], [address] [place] [address] Bethany [place] PA Social History [...] on filedocumented in this encounter Care Teams Coat Check Attendant Relationship Specialty Start Date End Date Kailash Hester MD [address] [place] [address] PCP - General Internal Medicine 04/04/23 documented as of this encounter
--- OUTSIDE RECORDS SUMMARY | 2024-08-25 14:09 | XMS_ITS | Encounter Summary ---
Author Organization [facility], Address [address] [place] [address] Phone Care Team Providers Care Project Facilitator Name Role Phone Kailash Hester MD Primary Care Provider [phone] Reason for Visit * Reason Comments Med Refill Encounter Details Date Type Department Care Team (Late st Contact Info) Description 03/07/2021 Refill [facility] [address] [place] [address] Alin Kitchen MD [address] [place] [phone] Social History Tobacco Use Types Packs/Day Years [...] on filedocumented in this encounter Care Teams Project Facilitator Relationship Specialty Start Date End Date Kailash Hester MD [address] [place] [address] PCP - General Internal Medicine 04/04/23 documented as of this encounter
--- OUTSIDE RECORDS SUMMARY | 2024-08-25 14:09 | XMS_ITS | Encounter Summary ---
Author Organization [facility] Address [address] [place] [address] Care Team Providers Care Knifeman Name Role Phone Kailash Hseter MD Primary Care Provider [phone] Hector Agee MD Unavailable [phone] Reason for Visit * Reason Comments E-prescribe Rx Request Encounter Details Date Type Department Care Team Description 06/27/2020 Refill Gastroenterology - [place] [address] [facility] [address] [place] [phone] Jaquan King MD [address] [facility] [address] [place] [address] E-prescribe Rx Request Social History Tobacco Use Types Packs/Day Years [...] have Coronavirus / COVID-19? No / Unsure 06/22/2020 1:50 PM EST documented as of this encounter Plan of Treatment Not on file documented as of this encounter Visit Diagnoses Not on filedocumented in this encounter Care Teams Knifeman Relationship Specialty Start Date End Date Kailash Hester MD PCP - General Internal Medicine 03/07/18 Hector Agee MD Specialist Cardiology 03/05/22 documented as of this encounter
--- OUTSIDE RECORDS SUMMARY | 2024-08-25 14:09 | XMS_ITS | Encounter Summary ---
Author Organization [facility] Address [address] [place] [address] Care Team Providers Care Cornetist Name Role Phone Kailash Hester MD Primary Care Provider [phone] Hector Agee MD Unavailable [phone] Encounter Details Date Type Department Care Team Description 08/12/2023 Orders Only Internal Medicine - [address], [address] [place] [address] Kailash Hester MD [address] [place] [address] Acute pain of left knee (Primary Dx) Social History Tobacco Use Types [...] documented as of this encounter Visit Diagnoses Diagnosis Acute pain of left knee- Primary documented in this encounter Care Teams Cornetist Relationship Specialty Start Date End Date Kailash Hester MD PCP - General Internal Medicine 03/07/18 Hector Agee MD Specialist Cardiology 03/05/22 documented as of this encounter
--- OUTSIDE RECORDS SUMMARY | 2024-08-25 14:09 | XMS_ITS | Encounter Summary ---
Author Organization [facility], Address [address] [place] [address] Phone Care Team Providers Care General Adjuster Name Role Phone Kailash Hester MD Primary Care Provider [phone] Encounter Details Date Type Department Care Team (Late st Contact Info) Description 04/09/2023 Documentation Only [facility], [address] [place] [phone] Oseas Guajardo MD [address] [place] [phone] Social History Tobacco Use Types Packs/Day Years [...] on filedocumented in this encounter Care Teams General Adjuster Relationship Specialty Start Date End Date Kailash Hester MD [address] [place] [address] PCP - General Internal Medicine 04/04/23 documented as of this encounter
--- OUTSIDE RECORDS SUMMARY | 2024-08-25 14:10 | XMS_ITS | Data Portability ---
Author Organization [place] - [facility], Allergy Address [address] [address] Care Team Providers Care Standpipe Tender Name Role Phone TATI STEELE Primary Care Provider Assessment Encounter Date Assessment Date Assessment LastModified by Organization Details LastModified Time 02/05/2024 02/05/2024 68-year-old male presents for cerumen removal. Cerumen removed bilaterally without difficulty. Follow-up in 6 months for repeat procedure. All questions answered. [email or web address] Not available 02/05/2024 13:23:35 Plan of Treatment Reminders Order Date Submit Date Provider Last Modified By Organization Details Last Modified Time Details Appointments Establish ed 15 2024 09:45A M JENNIFER STAHL PA-C Not available Not available Not available Lab None recorded. Referral None recorded. Procedures None recorded. Surgeries None recorded. Imaging None recorded. Medication Orders None recorded. Patient TargetsNo targets recorded. Patient InstructionsNo instructions recorded. Reason for Referral None Reported. Problems Name Problem SNOMED Code Status Onset Date Resolution Date Notes Provider Name and Address Organization Details Recorded Time Sensorin eural hearing loss of bilatera l ears 275800303 Active 2016 Sensorin eural hearing loss, bilatera l; Note: Date Diagnose d: 11/27/2016 10:33 AM (H90.3) Not Available [facility] 4 02:23:20 Otorrhea of left ear [id number] 84428 Completed 202211/29/2023 Otorrhea , left ear; Note: Date Diagnose d: 3 12:35 PM (H92.12) Not Available [facility] 4 02:22:54 Impacted cerumen of bilatera l ears 00762600535 16491 Active 2022 Impacted cerumen, bilatera l; Note: Date Diagnose d: 3 3:01 PM (H61.23) Not Available [facility] 4 02:23:25 Impacted cerumen in left ear 54202698870 76526 Active 2022 Impacted cerumen, left ear; Note: Date Diagnose d: 3 12:35 PM (H61.22) Not Available [facility] 4 02:23:22 Bilatera l tinnitus 79193263676 02 Active 2016 Tinnitus , bilatera l; Note: Date Diagnose d: 11/27/2016 10:33 AM (H93.13) Not Available [facility] 4 02:22:52 Problem Notes None recorded. Procedures Surgical History Date Name Laterality Status Provider Name and Address Organization Details Recorded Time 4 Cerumen removal without microscope bilat completed JENNIFER STAHL PA-C [address] [place] [address],[address], [address], [facility] - [facility] 02/05/2024 13:23:21 Imaging Results None recorded. Procedure Notes None recorded. Medical Equipment None Reported. Allergies No known drug allergies Medications Name Sig Start Date Stop Date Status Note LastModified by Organization Details LastModified Time gov dexcom g7 sensor CHANGE EVERY 10 DAYS 02/04 completed Not Available Not Available Not Available dexcom supply bundle DIRECTED 02/04 completed Not Available Not Available Not Available atorvasta tin 40 mg tablet active Medicati on ID: [id number] D uration Value: 90 Brand Name: atorvast atin Sen d Method: E-Prescr ibed Sub s Allowed: subs OK Medic ationGen ericName : atorvast atin Not Available Not Available Not Available atorvasta tin 80 mg tablet TAKE ONE Tablet BY MOUTH NIGHTLY AT BEDTIME 02/04 completed Not Available Not Available Not Available gabapenti n 600 mg tablet TAKE ONE Tablet BY MOUTH TWICE DAILY active Not Available Not Available No t Available methylphe nidate 10 mg tablet 02/04 completed Medicati on ID: [id number] D uration Value: 30 Brand Name: methylph enidate HCl Send Method: E-Prescr ibed Sub s Allowed: subs OK Medic ationGen ericName : methylph enidate HCl Not Available Not Available Not Available ketotifen 0.025 % (0.035 %) eye drops INSTILL 1 DROP BOTH EYES TWICE DAILY NEEDED (NOT COVERED, GET OTC) 02/04 completed Not Available Not Available Not Available methylphe nidate 20 mg tablet TAKE 1 TABLET BY MOUTH EVERY DAY IN THE MORNING FOR ADHD 02/04 completed Not Available Not Available Not Available methylphe nidate 5 mg tablet 02/04 completed Medicati on ID: [id number] D uration Value: 30 Brand Name: methylph enidate HCl Send Method: E-Prescr ibed Sub s Allowed: subs OK Medic ationGen ericName : methylph enidate HCl Not Available Not Available Not Available famotidin e 20 mg tablet TAKE 1 TABLET BY MOUTH TWICE A DAY 02/04 completed Not Available Not Available Not Available benzonata te 100 mg capsule TAKE 1 CAPSULE BY MOUTH 3 TIMES DAILY NEEDED FOR COUGH FOR UP TO 7 DAYS. 02/04 completed Not Available Not Available Not Available pantopraz ole 40 mg tablet,de layed release TAKE 1 TABLET BY MOUTH EVERY DAY 02/04 completed Not Available Not Available Not Available lisinopri l 10 mg tablet TAKE ONE Tablet BY MOUTH ONCE DAILY active Not Available Not Available No t Available gabapenti n 300 mg capsule 02/04 completed Medicati on ID: [id number] D uration Value: 90 Brand Name: gabapent in Send Method: E-Prescr ibed Sub s Allowed: subs OK Medic ationGen ericName : gabapent in Not Available Not Available Not Available topiramat e 200 mg tablet 2016 active Medicati on ID: [id number] D uration Value: 30 Brand Name: topirama te Send Method: E-Prescr ibed Sub s Allowed: subs OK Speci al Instruct ion: TAKE 1 TABLET BY MOUTH AT BEDTIME Medicati onGeneri cName: topirama te Not Available Not Available Not Available lisinopri l 5 mg tablet TAKE ONE TABLET BY MOUTH EVERY DAY 02/04 completed Not Available Not Available Not Available topiramat e 100 mg tablet TAKE ONE Tablet BY MOUTH TWICE DAILY 02/04 completed Not Available Not Available Not Available fluticaso ne propionat e 50 mcg/actua tion nasal spray,ricky pension SPRAY 2 SPRAYS INTO EACH NOSTRIL EVERY DAY FOR 14 DAYS active Not Available Not Available No t Available amoxicill in 875 mg-potass ium clavulana te 125 mg tablet TAKE 1 TABLET BY MOUTH TWICE A DAY FOR 10 DAYS 02/04 completed Not Available Not Available Not Available TobraDex 0.3 %-0.1 % eye drops,ricky pension Apply 4 drop 02/04 completed Medicati on ID: [id number] D uration Value: 14 Brand Name: TobraDex Send Method: E-Prescr ibed Sub s Allowed: subs OK Speci al Instruct ion: Apply 4 drops in the left EAR twice a day for 14 days [facility]: TobraDex Not Available Not Available Not Available Novolog FlexPen U-100 Insulin aspart 100 unit/mL (3 mL) subcutane ous INJECT 50 UNITS ONCE DAILY DIRECTED active Not Available Not Available No t Available duloxetin e 60 mg capsule,d elayed release TAKE 1 CAPSULE BY MOUTH ONCE A DAY AFTER SUPPER active Not Available Not Available No t Available Lantus Solostar U-100 Insulin 100 unit/mL (3 mL) subcutane ous pen USE UP TO 100 UNITS DAILY DIRECTED 02/04 completed Not Available Not Available Not Available Humalog KwikPen (U-100) Insulin 100 unit/mL subcutane ous 02/04 completed Medicati on ID: [id number] D uration Value: 30 Brand Name: Humalog KwikPen Send Method: E-Prescr ibed Sub s Allowed: subs OK Speci al Instruct ion: INJECT UP TO 50 UNITS A DAY DIRECTED Medicat ionGener icName: Humalog KwikPen Not Available Not Available Not Available fenofibra te 40 mg tablet Take 2 tablets every day by oral route. active Not Available Not Available No t Available BD Ultra-Fin e Madelyn Pen Needle 32 gauge x 5/32 USE SIX TIMES DAILY active Not Available Not Available No t Available Victoza 2-Jaime 0.6 mg/0.1 mL (18 mg/3 mL) subcutane ous pen injector INJECT 1.2 MG SUBCUTAN EOUSLY DAILY 02/04 completed Not Available Not Available Not Available Jardiance 10 mg tablet TAKE ONE Tablet BY MOUTH ONCE DAILY 02/04 completed Not Available Not Available Not Available Aimovig Autoinjec tor 140 mg/mL subcutane ous auto-inje ctor INJECT 1 AUTOINJE CTOR SUBCUTAN EOUS ONCE PER MONTH 30 DAYS 30 DAYS 02/04 completed Not Available Not Available Not Available Baqsimi 3 mg/actuat ion nasal spray SPRAY 1 SPRAY INTO ONE NOSTRIL ONCE. MAY REPEAT DOSE IN 15 MINUTES IF INADEQUA TE RESPONSE 02/04 completed Not Available Not Available Not Available Semglee (insulin glargine- yfgn) Pen 100 unit/mL (3 mL) subcutane ous INJECT UP TO 80 UNITS SUBCUTAN EOUSLY DAILY 02/04 completed Not Available Not Available Not Available Dexcom G7 Sensor device USE DIRECTED - CHANGE EVERY 10 DAYS 02/04 completed Not Available Not Available Not Available Omnipod 5 G6-G7 Intro Kit(Gen 5) subcutane ous cartridge and controlle r CHANGE POD every 3 DAYS as directed 02/04 completed Not Available Not Available Not Available Omnipod 5 G6-G7 Pods (Gen 5) subcutane ous cartridge CHANGE pod every THREE DAYS as directed . 02/04 completed Not Available Not Available Not Available Vitals None Recorded Social History None recorded. Functional Status None recorded. Mental Status None recorded. Family History Nothing Reported. Medical History No medical history recorded. Past Encounters Encounter ID Performer Location Encounter Start Date Encounter Closed Date Diagnosis/Indication Diagnosis SNOMED-CT Code Diagnosis ICD10 Code Diagnosis Note [id number] EVE BELTRAN MD [facility] [address] [phone] 02/05/2024 12:53:52 02/05/2024 13:21:33 Impacted cerumen of bilateral ears [id number] 139185 H61.23 Sensorineu ral hearing loss of bilateral ears 043842883 H90.3 Health Concerns Section Related Observation LastModified by Organization Detai ls LastModified Time None Recorded Concern Status LastModified by Organization Details LastModified Time None Recorded Advance Directives Directive None Recorded Payers Encounter Date Sequence Insurance Name Policy Number Policy Magana Covered Member ID Magana Member ID Guarantor Name 02/05/2024 1 [place]ICARE [place]: [employer] Joshua Becerril [id number] Joshua Melendez Jone Notes Date Note Type Note Provider Name and Address Organization Details Recorded Time 02/05/2024 text/html 68-year-old male presents for cerumen removal. No acute issues since his last visit. EVE BELTRAN MD [address] [place] [address], [phone], [facility] - [facility] 02/05/2024 16:31:02
--- OUTSIDE RECORDS SUMMARY | 2024-08-25 14:10 | XMS_ITS | Clinical Summary ---
Author Organization [facility] Address [address] [place] [address] Care Team Providers Care Hair Blender Name Role Phone Kailash Hester MD Primary Care Provider [phone] Hector Agee MD Unavailable [phone] Allergies Active Allergy Reactions Severity Noted Date Comments No Known Drug Allergies 03/25/2017 Medications Medication Sig Dispensed Refills Start Date End Date Status insulin aspart (NOVOLOG) 100 UNIT/ML injection Inject 14 Units into the skin 3 times daily (before meals). Sliding scale 0 Active topiramate (TOPAMAX) 200 MG tablet Take 200 mg by mouth at bedtime as needed. 0 Active duloxetine (CYMBALTA) 60 MG capsule Take 60 mg by mouth daily. 0 Active calcium carbonate (TUMS EX) 750 MG chewable tablet Take 1 tablet by mouth daily. 0 Active Coenzyme Q10 (COQ-10 OR) Take by mouth daily. 0 Act edward vitamin B-12 (CYANOCOBALAMIN) 1000 MCG tablet Take 1,000 mcg by mouth daily. 0 Active Cholecalciferol (VITAMIN D) 1000 UNITS Tab Take by mouth daily. 0 Acti ve Niacin (VITAMIN B-3 OR) Take 100 mg by mouth daily. 0 Active memantine (NAMENDA) 10 MG tabletIndications: Obstructive sleep apnea TAKE 1 TABLET BY MOUTH TWICE A DAY FOR MEMORY 6 2017 Active fenofibrate (TRICOR) 48 MG tablet TAKE 1 TABLET BY MOUTH EVERY DAY 90 Tab 1 08/18/2018 Active aspirin 81 MG tablet 81 mg daily. 0 09/18/2016 Active Calcium-Vitamin D-Vitamin K (CALCIUM + D + K) 750-500-40 MG-UNT-MCG Tab daily. 0 01/01/2017 Active gabapentin (NEURONTIN) 600 MG tablet 2 times daily. 11 07/11/2018 Active Insulin Glargine (LANTUS SOLOSTAR) 100 UNIT/ML Solution Pen-injector Inject 32 Units into the skin every morning. 44 units at HS 0 07/19/2018 Active BD PEN NEEDLE MARCOS U/F 32G X 4 MM Misc 0 07/19/2018 Active glucose 4 g chewable tablet 4 g. 0 06/10/2015 Active glucagon (GLUCAGON EMERGENCY) 1 MG injection 1 mg. 0 06/10/2015 Active VICTOZA 18 MG/3ML Solution Pen-injector 0 01/30/2019 Active Multiple Vitamins-Minerals (CENTRUM SILVER) Tab TAKE 1 TABLET DAILY. 0 09/18/2016 Acti ve Florbetapir F 18 500-1900 MBQ/ML Solution Inject into the vein every 30 days. 0 Active Jardiance 10 MG Tab Take 10 mg by mouth daily. 0 05/11/2022 Active atorvastatin (LIPITOR) 40 MG tablet TAKE 1 TABLET EVERY DAY 90 Tablet 1 06/15/2022 Active lisinopril (PRINIVIL,ZESTRIL) 5 MG tabletIndications: BRIAN (obstructive sleep apnea) Take 1 Tablet by mouth daily. 0 Active pantoprazole (PROTONIX) 40 MG tablet TAKE 1 TABLET BY MOUTH EVERY DAY 90 Tablet 3 04/23/2023 Active fluticasone 50 MCG/ACT nasal spray SPRAY 2 SPRAYS INTO EACH NOSTRIL EVERY DAY FOR 14 DAYS 16 mL 1 07/09/2023 Active Diclofenac Sodium 1 % Gel Apply 1 g topically 3 times daily. 90 g 2 08/09/2023 Active bisacodyl (Dulcolax) 5 MG EC tablet Take 2 tabs by mouth right before beginning bowel prep. Follow instructions given by office for timing. 2 Tablet 0 02/10/2024 Active polyethylene glycol (GoLYTELY) 236 g suspension Take 240 mL by mouth once for 1 dose. Take 4L by mouth once for one dose. May substitue any PEG. Starting at 6PM the night before your procedure drink 1 8oz glasses at your own pace until rectals run clear. 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 03/25/2018 DM (diabetes mellitus), type 2 with keon pheral vascular complications 03/25/2018 Chronic kidney disease (CKD) 01/09/2018 Hypertension 01/09/2018 Memory change 08/09/2017 Migraines 08/09/2017 Obstructive sleep apnea 07/31/2017 Overview: BIPAP Legally blind 05/28/2017 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 Diabetes mellitus type 2 with neurologic al manifestations 03/04/2017 Diabetic neuropathy 03/04/2017 GERD (gastroesophageal reflux disease) 1 05/04/2016 Hyperlipidemia 03/04/2017 Vitamin D deficiency 12/10/2016 Hearing difficulty, bilateral 10/18/2016 Tinnitus 10/18/2016 Attention-deficit/hyperactivity disorder 06/10/2016 Anxiety 06/10/2016 Extremity atherosclerosis with intermitt ent claudication 06/10/2016 Tubular adenoma of colon 06/10/2016 Benign prostate hyperplasia 02/10/2016 Fatty liver 02/10/2016 Depression 11/10/2015 Resolved Problems Problem Noted Date Resolved Date Frequent headaches 07/31/2017 03/25/2018 Immunizations Name Administration Dates Next Due Influenza vaccine high dose age 65 and over 01/28 Pneumoccoccal(Adult) Polysaccharide PPSV23 04/29 Tdap 02/10/2016 Twinrix 04/29/2013 Zostavax 04/29/2014 Social History Tobacco Use Types Packs/Day Years Used Date Smoking Tobacco: Never Passive Smoke Exposure: Past Smokeless Tobacco: Never Tobacco Cessation:Counseling Given: Not Answered Alcohol Use Standard Drinks/Week Comments Not Currently 0 (1 standard drink = 0.6 oz pur e alcohol) socially Sex Assigned at Date Recorded Not on file Job Start Date Occupation Industry Not on file Not on file Not on file Last Filed Vital Signs Vital Sign Reading Time Taken Comments Blood Pressure 124/80 01/16/2024 10:05 AM EDT Pulse 79 01/16/2024 10:05 AM EDT Temperature 36.6 ??C (97.8 ??F) 01/16/2024 10:05 AM E DT Respiratory Rate 20 01/16/2024 10:05 AM EDT Oxygen Saturation 97% 01/16/2024 10:05 AM EDT Inhaled Oxygen Concentration - - Weight 85.5 kg (188 lb 9.6 oz) 01/16/2024 10:05 AM EDT Height 175.3 cm (5' 9 ) 01/16/2024 10:05 AM EDT Body Mass Index 27.85 01/16/2024 10:05 AM EDT Plan of Treatment Health Maintenance Due Date Last Done Comments Covid-19 Vaccine (#1) 03/03/1956 HEPATITIS C SCREENING 09/01/1971 SHINGLES VACCINE (2 of 3) 06/24/2014 04/29/2014 DIABETES: ANNUAL FOOT EXAM 02/11/2018 02/11/2017 PNEUMOCOCCAL VACCINE (2 - PCV) 02/06/2020 02/05/2019 , 04/29/2013 DIABETES: ANNUAL URINE PROTE IN TEST (MICROALBUMIN) 01/31/2022 01/31/2021 DIABETES: BLOOD SUGAR CONTRO L TEST (HGBA1C) 05/26/2022 02/23/2022, 01/31/2021, 09/06/2020, Additional history exists DIABETES/HEART DISEASE: DAVID BLACKBURN CHOLESTEROL (LDL) 02/23/2023 02/23/2022, 02/24/2020, 12/27/2017 (Completed) DIABETES: ANNUAL EYE EXAM 12/11/2023 12/10/2022 FALL RISK ASSESSMENT 01/15/2024 01/14/2023, 02/24/20 22 BMI CHECK/ADVISE 04/29/2024 07/15/2023, , 07/25/2022, Additional history exists DEPRESSION SCREEN 07/14/2024 07/15/2023, , 02/23/2022 INFLUENZA (Season Ended) 2024 022, 02/05/2019, 01/03/2017 DTAP/TDAP/TD (2 - Td or Tdap) 02/09/2026 02/10/2016 COLON CANCER SCREENING 02/23/2029 , 06/18/2018, 06/18/2018 (Completed) Care Teams Hair Blender Relationship Specialty Start Date End Date Kailash Hester MD PCP - General Internal Medicine 03/07/18 Hector Agee MD Specialist Cardiology 03/05/22
--- OUTSIDE RECORDS SUMMARY | 2024-08-25 14:10 | XMS_ITS | Encounter Summary ---
Author Organization [facility] Address [address] [place] [address] Care Team Providers Care Food And Drug Research Scientist Name Role Phone Kailash Hester MD Primary Care Provider [phone] Hector Agee MD Unavailable [phone] Encounter Details Date Type Department Care Team Description 04/18/2018 Transfer Records Medical Records [address] [place] [address] Ba Martinez MD Social History Tobacco Use Types Packs/Day Years [...] on filedocumented in this encounter Care Teams Food And Drug Research Scientist Relationship Specialty Start Date End Date Kailash Hester MD PCP - General Internal Medicine 03/07/18 Hector Agee MD Specialist Cardiology 03/05/22 documented as of this encounter
--- OUTSIDE RECORDS SUMMARY | 2024-08-25 14:10 | XMS_ITS | Encounter Summary ---
Author Organization [facility] Address [address] [place] [address] Care Team Providers Care Coin Box Collector Name Role Phone Kailash Hester MD Primary Care Provider [phone] Hector Agee MD Unavailable [phone] Encounter Details Date Type Department Care Team Description 07/21/2018 Physical Therapist Clinic Director Report Medical Records [address] [place] [id number] Ramsey Weldon MD Social History Tobacco Use Types Packs/Day [...] on filedocumented in this encounter Care Teams Coin Box Collector Relationship Specialty Start Date End Date Kailash Hester MD PCP - General Internal Medicine 03/07/18 Hector Agee MD Specialist Cardiology 03/05/22 documented as of this encounter
--- OUTSIDE RECORDS SUMMARY | 2024-08-25 14:10 | XMS_ITS | Encounter Summary ---
Author Organization [facility] Address [address] [place] [address] Care Team Providers Care Expander Machine Operator Name Role Phone Kailash Hester MD Primary Care Provider [phone] Hector Agee MD Unavailable [phone] Reason for Visit * Reason Onset Date Comments radiology 08/09/2023 Encounter Details Date Type Department Care Team Description 08/09/2023 Telephone Internal Medicine - [address], [address] [place] [address] Kailash Hester MD [address] [place] [address] radiology Social History Tobacco Use Types Packs/Day Years [...] encounter Miscellaneous Notes * Telephone Encounter - Cesar Tsang - 08/12/2023 10:48 AM EDT Spoke with provider. Pt does't need appt. Order placed. * Telephone Encounter - Kailash Hester MD - 08/10/2023 7:02 AM EDT Patient to see any provider in the office. * Telephone Encounter - Davina M Solis - 08/09/2023 12:13 PM EDT DEXTER order was to be sent to [facility] - never sent- Patient is legally blind and is at the dept now Send request radiology Left knee- due to pain -swelling documented in this encounter Plan of Treatment Not on file documented as of this encounter Visit Diagnoses Not on filedocumented in this encounter Care Teams Expander Machine Operator Relationship Specialty Start Date End Date Kailash Hester MD PCP - General Internal Medicine 03/07/18 Hector Agee MD Specialist Cardiology 03/05/22 documented as of this encounter
--- OUTSIDE RECORDS SUMMARY | 2024-08-25 14:10 | XMS_ITS | Encounter Summary ---
Author Organization [facility] Address [address] [place] [address] Care Team Providers Care Sales Agent Marine Insurance Name Role Phone Kailash Hester MD Primary Care Provider [phone] Hector Agee MD Unavailable [phone] Encounter Details Date Type Department Care Team Description 01/29/2023 Orders Only Medical Records [address] [place] [address], [facility] Social History Tobacco Use Types Packs/Day Years Used Date Smoking Tobacco: Never Smokeless Tobacco: Never Alcohol Use Standard Drinks/Week Comments Not Currently 0 (1 standard drink = 0.6 oz pur e alcohol) socially Sex Assigned at Date Recorded Not on file Job Start Date Occupation Industry Not on file Not on file Not on file COVID-19 Exposure Response Date Recorded In the last 10 days, have yo u been in contact with someone who was confirmed or suspected to have Coronavirus/COVID-19? No / Unsure 01/14/2023 9:39 AM EDT documented as of this encounter Plan of Treatment Not on file documented as of this encounter Procedures Procedure Name Priority Date/Time Associated Diagnosis Comments OUTSIDE EYE EXAM Routine 12/10/2022 documented in this encounter Results * OUTSIDE EYE EXAM (12/10/2022) [facility] Infi rmary PROCEDURES documented in this encounter Visit Diagnoses Not on filedocumented in this encounter Care Teams Sales Agent Marine Insurance Relationship Specialty Start Date End Date Kailash Hester MD PCP - General Internal Medicine 03/07/18 Hector Agee MD Specialist Cardiology 03/05/22 documented as of this encounter
--- OUTSIDE RECORDS SUMMARY | 2024-08-25 14:10 | XMS_ITS | Encounter Summary ---
Author Organization [facility] Address [address] [place] [address] Care Team Providers Care Children'S Entertainer Name Role Phone Kailash Hester MD Primary Care Provider [phone] Hector Agee MD Unavailable [phone] Encounter Details Date Type Department Care Team Description 06/18/2018 Hospital Medical Records [address] [place] [address] Jaquan King MD [address] [place] [id number] Social History Tobacco Use Types Packs/Day Years [...] on filedocumented in this encounter Care Teams Children'S Entertainer Relationship Specialty Start Date End Date Kailash Hester MD PCP - General Internal Medicine 03/07/18 Hector Agee MD Specialist Cardiology 03/05/22 documented as of this encounter
--- OUTSIDE RECORDS SUMMARY | 2024-08-25 14:10 | XMS_ITS | Encounter Summary ---
Author Organization [facility] Address [address] [place] [address] Care Team Providers Care Photofinishing Laboratory Worker Name Role Phone Kailash Hester MD Primary Care Provider [phone] Hector Agee MD Unavailable [phone] Encounter Details Date Type Department Care Team Description 10/15/2022 Strategies Analyst Report Medical Records [address] [place] [address] Social History Tobacco Use Types Packs/Day Years [...] on filedocumented in this encounter Care Teams Photofinishing Laboratory Worker Relationship Specialty Start Date End Date Kailash Hester MD PCP - General Internal Medicine 03/07/18 Hector Agee MD Specialist Cardiology 03/05/22 documented as of this encounter
--- OUTSIDE RECORDS SUMMARY | 2024-08-25 14:10 | XMS_ITS | Encounter Summary ---
Author Organization [facility] Address [address] [place] [address] Care Team Providers Care Crepe Laminator Operator Name Role Phone Kailash Hester MD Primary Care Provider [phone] Hector Agee MD Unavailable [phone] Reason for Referral * EXTERNAL (Priority) - Authorized/Booked Specialty Diagnoses / Procedures Referred By Contac t Referred To Contact Allergy & Immunology / Allergy Procedures REFERRAL TO ALLERGY Kailash Hester MD [address] [place] [address] [facility] [place] [address] Referral ID Status Reason Start Date Expiration Date V isits Requested Visits Authorized [id number] Authorized/B ooked 03/13/2021 06/13/2021 1 1 Reason for Visit * Reason Onset Date Comments Provider Call Back 03/10/2021 TEST RESULTS 03/10/2021 Encounter Details Date Type Department Care Team Description 03/10/2021 Telephone Adult Medicine [address] [address] Kailash Hester MD [address] [place], [place] [id number] Provider Call Back; TEST RESULTS Social History Tobacco Use Types Packs/Day Years [...] have Coronavirus / COVID-19? No / Unsure 02/21/2021 2:42 PM EDT documented as of this encounter Miscellaneous Notes * Telephone Encounter - Carmencita Mason - 03/10/2021 3:50 PM EST Could this testing be done? If so can the order be placed? Please advice * Telephone Encounter - Yumiko Oreilly - 03/10/2021 3:01 PM EST Inform patient: ANY URGENT OR ABNORMAL RESULTS WIILL RESULT IN A CALL BACK TO THE PATIENT DEXTER. Type of test: :labs Date test was performed: 02/21/2021 Where was the test performed: [facility] Who ordered this test?: Dr Hester Is the doctor here today?: NO Can the message wait until the doctor returns?: YES IF PATIENT'S PCP IS NOT IN INSTRUCT PATIENT THAT THEY WILL RECEIVE A CALL BACK WHEN THE PCP IS IN THE OFFICE NEXT. Caller requesting call back from provider: Is the caller the patient? yes If caller is not the patient, what is the callers name? N/A Callers relationship to patient? N/A If person calling is not the patient themselves, is there a verbal release in FYI or permanent comments for this person: NO Reason for call back: Pt will like to be tested for allergies Caller offered to speak with the nurse for assistance: YES Response: documented in this encounter Plan of Treatment Not on file documented as of this encounter Visit Diagnoses Not on filedocumented in this encounter Care Teams Crepe Laminator Operator Relationship Specialty Start Date End Date Kailash Hester MD PCP - General Internal Medicine 03/07/18 Hector Agee MD Specialist Cardiology 03/05/22 documented as of this encounter
--- OUTSIDE RECORDS SUMMARY | 2024-08-25 14:10 | XMS_ITS | Encounter Summary ---
Author Organization [facility] Address [address] [place] [address] Care Team Providers Care Door To Door Selling Distributor Name Role Phone Luisa Lima MD Primary Care Provider Unavailab Kailash Haider MD Primary Care Provider [phone] Hector Agee MD Unavailable [phone] Reason for Referral * Non RADHA (Urgent) - Authorized/Booked Specialty Diagnoses / Procedures Referred By Contac t Referred To Contact Gastroenterology Procedures REFERRAL TO GASTROENTEROLOGY Kailash Hester MD [address] [place] [address] [facility]/[address] [place] [id number] Referral ID Status Reason Start Date Expiration Date V isits Requested Visits Authorized [id number] Authorized/B ooked 02/28/2018 02/28/2019 1 1 Reason for Visit * Reason Onset Date Comments medication problems 02/28/2018 Encounter Details Date Type Department Care Team Description 02/28/2018 Telephone Internal Medicine - [address], [address] [address] Kailash Hester MD [address] [place], [place] [id number] medication problems Social History Tobacco Use Types Packs/Day Years [...] encounter Miscellaneous Notes * Telephone Encounter - Kailash Hester MD - 02/28/2018 4:40 PM EDT Did ref to gi * Telephone Encounter - Kailash Hester MD - 02/28/2018 4:27 PM EDT Pt already on priolsec. Will ref to gi. * Telephone Encounter - Kailash Hester MD - 02/28/2018 4:25 PM EDT Will call in [employer] . If not better in 1 week follow up. * Telephone Encounter - Mulu Hinton - 02/28/2018 4:10 PM EDT What is the name of the medication patient is having a problem with?: Ranitidine 150 mg What is the problem?: not working for his esophageal reflux Is the patient calling about the problem? YES If the patient is not the caller who is? self Is this a NEW medication?: YES How long has the patient been taking this medication? Since 01/27/2018 Who prescribed this medication for the patient? Dr Lima Who is patients PCP?: Dr Hester [place] / [place] / Product Type: MEDICARE [id number] documented in this encounter Plan of Treatment Not on file documented as of this encounter Visit Diagnoses Not on filedocumented in this encounter Care Teams Door To Door Selling Distributor Relationship Specialty Start Date End Date Luisa Lima MD PCP - General Internal Medicine 01/25/17 03/06/18 Kailash Hester MD PCP - General Internal Medicine 03/07/18 Hector Agee MD Specialist Cardiology 03/05/22 documented as of this encounter
--- OUTSIDE RECORDS SUMMARY | 2024-08-25 14:10 | XMS_ITS | Encounter Summary ---
Author Organization [facility] Address [address] [place] [address] Care Team Providers Care Ad Compositor Name Role Phone Kailash Hester MD Primary Care Provider [phone] Hector Agee MD Unavailable [phone] Reason for Visit * Reason Onset Date Comments Pre-op Needed 07/27/2020 Encounter Details Date Type Department Care Team Description 07/27/2020 Telephone Internal Medicine - [address], [address] [place] [address] Kailash Hester MD [address] [place] [address] Pre-op Needed Social History Tobacco Use Types Packs/Day Years [...] have Coronavirus / COVID-19? No / Unsure 07/20/2020 3:46 PM EDT documented as of this encounter Miscellaneous Notes * Telephone Encounter - Marianne Kearns - 07/27/2020 2:34 PM EDT Date of surgery: 09/14/20 What surgery is patient having (gall bladder, cataract, appendix, etc...)?: Cataract Surgeon's name: Dr Plunkett Office phone number of surgeon: [phone] Fax # for surgeons office: [phone] (Required) Where is surgery being performed? [facility] [address] [place] [address] Diagnosis/problem for surgery: Cataract Is an EKG required for the pre-op workup? YES PCP: Mir Linder Did you verify that the insurance below is correct? YES Patients insurance: Payor: MEDICARE-[employer] / Plan: MEDICARE-[employer] / Product Type: MEDICARE [id number] documented in this encounter Plan of Treatment Not on file documented as of this encounter Visit Diagnoses Not on filedocumented in this encounter Care Teams Ad Compositor Relationship Specialty Start Date End Date Kailash Hester MD PCP - General Internal Medicine 03/07/18 Hector Agee MD Specialist Cardiology 03/05/22 documented as of this encounter
--- OUTSIDE RECORDS SUMMARY | 2024-08-25 14:10 | XMS_ITS | Encounter Summary ---
Author Organization [facility] Address [address] [place] [address] Care Team Providers Care Manager Terminal Name Role Phone Kailash Hester MD Primary Care Provider [phone] Hector Agee MD Unavailable [phone] Reason for Referral * INTERNAL (Routine) - Authorized/Booked Specialty Diagnoses / Procedures Referred By Contnate renee Referred To Contact ORTHOPEDICS / Orthopedic Procedures REFERRAL TO ORTHOPEDICS (IN NETWORK) Kailash Hester MD [address] [place] [address] Nabil Simental, PAGenesis [address] [place] [address] Referral ID Status Reason Start Date Expiration Date V isits Requested Visits Authorized [id number] Authorized/B ooked 08/06/2023 08/04/2024 1 1 Reason for Visit * Reason Onset Date Comments REFERRAL 08/06/2023 Encounter Details Date Type Department Care Team Description 08/06/2023 Telephone Internal Medicine - [address], [address] [place] [address] Kailash Hester MD [address] [place] [address] REFERRAL Social History Tobacco Use Types Packs/Day Years [...] encounter Miscellaneous Notes * Telephone Encounter - Ciara Tiffanie - 08/06/2023 1:51 PM EDT Referral pended below for knee pain. Please sign if appropriate. * Telephone Encounter - Elizabeth Rubio - 08/06/2023 1:37 PM EDT Referral to ortho requesting it to be updated with the patient's left knee pain to be included. documented in this encounter Plan of Treatment Not on file documented as of this encounter Visit Diagnoses Not on filedocumented in this encounter Care Teams Manager Terminal Relationship Specialty Start Date End Date Kailash Hester MD PCP - General Internal Medicine 03/07/18 Hector Agee MD Specialist Cardiology 03/05/22 documented as of this encounter
--- OUTSIDE RECORDS SUMMARY | 2024-08-25 14:10 | XMS_ITS | Encounter Summary ---
Author Organization [facility] Address [address] [place] [address] Care Team Providers Care Pantograph Transferrer Name Role Phone Kailash Hester MD Primary Care Provider [phone] Hector Agee MD Unavailable [phone] Encounter Details Date Type Department Care Team Description 04/02/2019 Construction Management Instructor Report Medical Records [address] [place] [address] Abstract, Provider Social History Tobacco Use Types [...] on filedocumented in this encounter Care Teams Pantograph Transferrer Relationship Specialty Start Date End Date Kailash Hester MD PCP - General Internal Medicine 03/07/18 Hector Agee MD Specialist Cardiology 03/05/22 documented as of this encounter
--- OUTSIDE RECORDS SUMMARY | 2024-08-25 14:10 | XMS_ITS | Encounter Summary ---
Author Organization [facility] Address [address] [place] [address] Care Team Providers Care Mill Washer Name Role Phone Kailash Hester MD Primary Care Provider [phone] Hector Agee MD Unavailable [phone] Encounter Details Date Type Department Care Team Description 05/20/2018 Refill Gastroenterology - [address] [place] [phone] Yennifer Paige, DScPAS Social History Tobacco Use Types Packs/Day Years [...] on filedocumented in this encounter Care Teams Mill Washer Relationship Specialty Start Date End Date Kailash Hester MD PCP - General Internal Medicine 03/07/18 Hector Agee MD Specialist Cardiology 03/05/22 documented as of this encounter
--- OUTSIDE RECORDS SUMMARY | 2024-08-25 14:10 | XMS_ITS | Encounter Summary ---
Author Organization [facility] Address [address] [place] [address] Care Team Providers Care Fill Technician Name Role Phone Kailash Hester MD Primary Care Provider [phone] Hector Agee MD Unavailable [phone] Encounter Details Date Type Department Care Team Description 06/15/2021 Oracle Adf Consultant Report Medical Records [address] [place] [address] Abstract, Provider Social History Tobacco Use Types [...] on filedocumented in this encounter Care Teams Fill Technician Relationship Specialty Start Date End Date Kailash Hester MD PCP - General Internal Medicine 03/07/18 Hector Agee MD Specialist Cardiology 03/05/22 documented as of this encounter
--- OUTSIDE RECORDS SUMMARY | 2024-08-25 14:10 | XMS_ITS | Encounter Summary ---
Author Organization [facility] Address [address] [place] [address] Care Team Providers Care Metals Analyst Name Role Phone Kailash Hester MD Primary Care Provider [phone] Hector Agee MD Unavailable [phone] Reason for Visit * Reason Onset Date Comments refill request 12/11/2021 Encounter Details Date Type Department Care Team Description 12/11/2021 Refill Internal Medicine - [address], [address] [place] [address] Kailash Hester MD [address] [place], [place] [id number] refill request Social History Tobacco Use Types [...] encounter Miscellaneous Notes * Telephone Encounter - Eve Avila - 12/11/2021 2:21 PM EDT Samir 02/21/2021 Nov 02/23/2022 documented in this encounter Plan of Treatment Not on file documented as of this encounter Visit Diagnoses Not on filedocumented in this encounter Care Teams Metals Analyst Relationship Specialty Start Date End Date Kailash Hester MD PCP - General Internal Medicine 03/07/18 Hector Agee MD Specialist Cardiology 03/05/22 documented as of this encounter
--- OUTSIDE RECORDS SUMMARY | 2024-08-25 14:10 | XMS_ITS | Encounter Summary ---
Author Organization [facility] Address [address] [place] [address] Care Team Providers Care Police Service Technician Name Role Phone Kailash Hester MD Primary Care Provider [phone] Hector Agee MD Unavailable [phone] Encounter Details Date Type Department Care Team Description 09/05/2018 Orders Only Medical Records [address] [place] [address] Jaquan King MD [address] [place] [address] [address] [place] [address] Social History Tobacco Use Types Packs/Day Years [...] Name Priority Date/Time Associated Diagnosis Comments OUTSIDE PATHOLOGY Routine 09/03/2018 documented in this encounter Results * OUTSIDE PATHOLOGY (09/03/2018) Jaquan King MD OUTSIDE LAB documented in this encounter Visit Diagnoses Not on filedocumented in this encounter Care Teams Police Service Technician Relationship Specialty Start Date End Date Kailash Hester MD PCP - General Internal Medicine 03/07/18 Hector Agee MD Specialist Cardiology 03/05/22 documented as of this encounter
--- OUTSIDE RECORDS SUMMARY | 2024-08-25 14:10 | XMS_ITS | Encounter Summary ---
Author Organization [facility] Address [address] [place] [address] Care Team Providers Care Research Executive Name Role Phone Kailash Hester MD Primary Care Provider [phone] Hector Agee MD Unavailable [phone] Encounter Details Date Type Department Care Team Description 04/30/2018 Transfer Records Medical Records [address] [place] [address] Abstract, Provider Social History Tobacco Use Types [...] on filedocumented in this encounter Care Teams Research Executive Relationship Specialty Start Date End Date Kailash Hester MD PCP - General Internal Medicine 03/07/18 Hector Agee MD Specialist Cardiology 03/05/22 documented as of this encounter
--- OUTSIDE RECORDS SUMMARY | 2024-08-25 14:10 | XMS_ITS | Encounter Summary ---
Author Organization [facility] Address [address] [place] [address] Care Team Providers Care Acquisitions Analyst Name Role Phone Kailash Hester MD Primary Care Provider [phone] Hector Agee MD Unavailable [phone] Reason for Visit * Reason Comments E-prescribe Rx Request Encounter Details Date Type Department Care Team Description 08/18/2018 Refill Internal Medicine - [address], [address] [place] [address] Kailash Hester MD [address] [place], [place] [phone] E-prescribe Rx Request Social History Tobacco Use [...] encounter Miscellaneous Notes * Telephone Encounter - Claudia Malcolm M.A. - 08/18/2018 3:52 PM EDT Last appt 01/09/2018 * Telephone Encounter - Latoya Magana - 08/18/2018 2:32 PM EDT Patient would like script to be: E-PRESCRIBED/FAXED TO PHARMACY WHEN WAS THE PATIENT'S LAST APPOINTMENT IN ADULT MEDICINE? Unknown WHEN WAS THE LAST TIME THE PATIENT SAW THEIR PCP? Same as above Does patient have an upcoming appointment? Yes 09/25/18 (THE MEDICATION REQUESTED IS ON THE MED LIST ABOVE) All of the medications requested were on the CURRENT MEDS list Did you check the Pharmacy information above?: YES Patient wants: 90 -day supply Is this a mail order prescription request ? NO If the refill is from a FAXED refill request what is the RX # listed on the fax? N/A Patients current insurance carrier is: Payor: MEDICARE-[employer] / Plan: MEDICARE-[employer] / Product Type: MEDICARE [id number] documented in this encounter Plan of Treatment Not on file documented as of this encounter Visit Diagnoses Not on filedocumented in this encounter Care Teams Acquisitions Analyst Relationship Specialty Start Date End Date Kailash Hester MD PCP - General Internal Medicine 03/07/18 Hector Agee MD Specialist Cardiology 03/05/22 documented as of this encounter
--- OUTSIDE RECORDS SUMMARY | 2024-08-25 14:10 | XMS_ITS | Encounter Summary ---
Author Organization [facility] Address [address] [place] [address] Care Team Providers Care Digital Controls Technical Officer Name Role Phone Kailash Hester MD Primary Care Provider [phone] Hector Agee MD Unavailable [phone] Encounter Details Date Type Department Care Team Description 11/15/2020 SCAN Medical Records [address] [place] [id number] [place] [address] Social History Tobacco Use Types Packs/Day Years [...] have Coronavirus / COVID-19? No / Unsure 11/08/2020 2:01 PM EDT documented as of this encounter Plan of Treatment Not on file documented as of this encounter Visit Diagnoses Not on filedocumented in this encounter Care Teams Digital Controls Technical Officer Relationship Specialty Start Date End Date Kailash Hester MD PCP - General Internal Medicine 03/07/18 Hector Agee MD Specialist Cardiology 03/05/22 documented as of this encounter
--- OUTSIDE RECORDS SUMMARY | 2024-08-25 14:10 | XMS_ITS | Encounter Summary ---
Author Organization [facility] Address [address] [place] [address] Care Team Providers Care Health Benefits Specialist Name Role Phone Kailash Hester MD Primary Care Provider [phone] Hector Agee MD Unavailable [phone] Encounter Details Date Type Department Care Team Description 06/03/2023 Medical Orderly Report Medical Records [address] [place] [address] Social History Tobacco Use Types Packs/Day Years [...] on filedocumented in this encounter Care Teams Health Benefits Specialist Relationship Specialty Start Date End Date Kailash Hester MD PCP - General Internal Medicine 03/07/18 Hector Agee MD Specialist Cardiology 03/05/22 documented as of this encounter
--- OUTSIDE RECORDS SUMMARY | 2024-08-25 14:10 | XMS_ITS | Encounter Summary ---
Author Organization [facility] Address [address] [place] [address] Care Team Providers Care Culinary Specialist Name Role Phone Kailash Hester MD Primary Care Provider [phone] Hector Agee MD Unavailable [phone] Reason for Visit * Reason Comments E-prescribe Rx Request Encounter Details Date Type Department Care Team Description 02/09/2021 Refill Internal Medicine - [address], [address] [place] [address] Kailash Hester MD [address] [place] [address] E-prescribe Rx Request Social History Tobacco Use [...] have Coronavirus / COVID-19? No / Unsure 01/31/2021 10:06 AM EDT documented as of this encounter Miscellaneous Notes * Telephone Encounter - Martina PRICE - 02/09/2021 11:52 AM EDT BP Readings from Last 3 Encounters: 01/31/21 (!) 142/78 11/08/20 112/68 09/22/20 116/78 * Telephone Encounter - Nikki Kathy - 02/09/2021 11:39 AM EDT NOV 02/21/21 documented in this encounter Plan of Treatment Not on file documented as of this encounter Visit Diagnoses Not on filedocumented in this encounter Care Teams Culinary Specialist Relationship Specialty Start Date End Date Kailash Hester MD PCP - General Internal Medicine 03/07/18 Hector Agee MD Specialist Cardiology 03/05/22 documented as of this encounter
--- OUTSIDE RECORDS SUMMARY | 2024-08-25 14:10 | XMS_ITS | Encounter Summary ---
Author Organization [facility] Address [address] [place] [address] Care Team Providers Care Asphalt Heater Operator Name Role Phone Kailash Hester MD Primary Care Provider [phone] Hector Agee MD Unavailable [phone] Reason for Visit * Reason Comments E-prescribe Rx Request Encounter Details Date Type Department Care Team Description 10/07/2019 Refill Internal Medicine - [address], [address] [place] [address] Kailash Hester MD [address] [place] [address] E-prescribe Rx Request Social History Tobacco Use [...] Telephone Encounter - Claudia Malcolm M.A. - 10/07/2019 11:25 AM EDT No results found for: CHOL, LDL, HDL, TRIG, SGOT, SGPT * Telephone Encounter - Rebeca Salgado - 10/07/2019 10:41 AM EDT DULCE MARIA 2019 NEXT 10/12/2019 90 DAY SUPPLY documented in this encounter Plan of Treatment Not on file documented as of this encounter Visit Diagnoses Not on filedocumented in this encounter Care Teams Asphalt Heater Operator Relationship Specialty Start Date End Date Kailash Hester MD PCP - General Internal Medicine 03/07/18 Hector Agee MD Specialist Cardiology 03/05/22 documented as of this encounter
--- OUTSIDE RECORDS SUMMARY | 2024-08-25 14:10 | XMS_ITS | Clinical Summary ---
Author Organization [facility], Address [address] [place] [address] [place] [address] Phone Care Team Providers Care Armored Car Driver Name Role Phone Kailash Hester MD Primary Care Provider [phone] Allergies No known active allergies Medications aspirin 81 MG tablet 81 mg 7 Active calcium carbonate EX (TUMS EX) 750 MG chewable tablet Chew 1 tablet Active multivitamine, geriatric, (CENTRUM SILVER) tablet TAKE 1 TABLET DAILY. 7 Active topiramate (TOPAMAX) 200 MG tablet Comments: Filled Date: Nov 21 2016 12:00AM Patient Notes: TAKE 1 TABLET BY MOUTH AT BEDTIME Duration: 30 7 Active raNITIdine (ZANTAC) 150 MG tablet 2 times daily. 9 Active fenofibrate (TRICOR) 48 MG tablet TAKE 1 TABLET BY MOUTH EVERY DAY 9 Active glucose 4 g chewable tablet 4 g 6 Active Cholecalciferol 25 MCG (1000 UT) chewable tablet Chew Active coenzyme Q-10 10 MG capsule Take by mouth Ac tive cyanocobalamin (VITAMIN B-12) 1000 MCG tablet Take 1,000 mcg by mouth Active diphenoxylate-a tropine (LOMOTIL) 2.5-0.025 MG per tablet Take 1 tablet by mouth 1 Active DULoxetine (CYMBALTA) [address] capsule Take 60 mg by mouth Active Florbetapir F 18 500-1900 MBQ/ML solution Infuse into a venous catheter Active insulin aspart (NovoLOG) 100 UNIT/ML injection Inject 14 Units under the skin Active insulin glargine (Lantus SoloStar) 100 UNIT/ML injection Inject 32 Units under the skin every morning 9 Active liraglutide (Victoza) 18 MG/3ML injection Inject 1.2 mg under the skin daily 9 Active niacin 100 MG tablet Take 100 mg by mouth Active pantoprazole (PROTONIX) 40 MG EC tablet Take 1 tablet by mouth 1 (one) time each day 1 Active sucralfate (CARAFATE) 1 g tablet Take 1 tablet by mouth 4 times a day 0 Active atorvastatin (LIPITOR) 40 MG tablet Take 1 tablet by mouth 1 (one) time each day 0 Active tiZANidine (ZANAFLEX) 4 MG tablet Take 4 mg by mouth daily Active Aimovig 140 MG/ML solution auto-injector INJECT 1 AUTOINJECTOR SUBCUTANEOUS ONCE PER MONTH 30 DAYS 90 2 Active gabapentin (NEURONTIN) 600 MG tablet Take 600 mg by mouth in the morning and 600 mg in the evening. 2 Active memantine (NAMENDA) 10 MG tablet Take 10 mg by mouth 2 Active methylphenidate (RITALIN) 20 MG tablet TAKE 1 TABLET BY MOUTH EVERY DAY IN THE MORNING FOR ADHD 2 Active lisinopril 2.5 MG tablet TAKE 1 TABLET BY MOUTH EVERY DAY 90 tablet 3 3 Active Jardiance 10 MG tablet TAKE 1 TABLET BY MOUTH EVERY MORNING 30 tablet 11 3 Active pantoprazole (PROTONIX) 40 MG EC tablet TAKE 1 TABLET BY MOUTH IN THE MORNING AND 1 TABLET IN THE EVENING. DO NOT CRUSH, CHEW, OR SPLIT.. 180 tablet 1 5 Active Active Problems Problem Noted Date Diagnosed Date Type 2 diabetes mellitus without complication Stage 3b chronic kidney disease 03/27/2021 Chronic kidney disease due to hypertension 05/26 Hypertension 01/09/2018 Resolved Problems Problem Noted Date Diagnosed Date Resolved Date Stage 3a chronic kidney disease 09/10/2022 05/05/2024 Hypoglycemia 05/26/2019 03/27/2021 Legal blindness [place] 05/26/2019 03/27/20 21 Asthma 05/26/2019 03/27/2021 Seizure 05/26/2019 03/27/2021 Short segment Isidro's esophagus 07/29/2018 03/27/2021 Carpal tunnel syndrome 03/25/201803/27 Peripheral circulatory disor chelsey due to type 2 diabetes mellitus 03/25/2018 03/27/2021 Memory impairment 08/09/2017 03/27/2021 Migraine 08/09/2017 03/27/2021 Obstructive sleep apnea 07/31/201702/28 Overview (05/26/2019): BIPAP 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 Gastroesophageal reflux disease 03/04/2017 03/27/2021 Hyperlipidemia 03/04/2017 03/27/2021 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 03/04/2017 03/27/2021 Vitamin D deficiency 12/10/2016 021 Hearing difficulty 10/18/2016 Tinnitus 10/18/2016 03/27/2021 Atherosclerosis of arteries of the extremities 06/10/2016 03/27/2021 Anxiety 06/10/2016 03/27/2021 Attention deficit hyperactivity disorder 06/10/2016 03/27/2021 Tubular adenoma of colon 06/10/2016 Benign prostatic hyperplasia 02/10/2016 03/27/2021 Fatty liver 02/10/2016 03/27/2021 Depressive disorder 11/10/2015 03/27/20 21 Encounters Date Type Department Care Team Description 05/28/2024 Refill [facility] [address] [place] [address] Oseas Guajardo MD from Last 3 Months Immunizations Immunization Administration Dates Next Due Hep A / Hep B 04/29/2013 Pneumococcal Polysaccharide 04/29/2013 Tdap 02/10/2016 Zoster 04/29/2014 Family History Relation Status Comments Father Mother Alive Social History Tobacco Use Types Packs/Day Years Used Date Smoking Tobacco: Never Tobacco Cessation:Counseling Given: Not Answered Alcohol Use Standard Drinks/Week Comments No 0 (1 standard drink = 0.6 oz pur e alcohol) Sex and Gender Information Value Date Recorded Sex Assigned at Not on file Legal Sex Male 4:36 PM EST Gender Identity Not on file Sexual Orientation Not on file Last Filed Vital Signs Vital Sign Reading Time Taken Comments Blood Pressure 130/86 09/10/2022 3:38 PM EDT Pulse 74 09/13/2017 12:00 PM EDT Temperature - - Respiratory Rate 16 09/13/2017 12:00 PM EDT Oxygen Saturation - - Inhaled Oxygen Concentration - - Weight 83.5 kg (184 lb) 09/10/2022 3:38 PM EDT Height 175.3 cm (5' 9 ) 09/10/2022 3:38 PM EDT Body Mass Index 27.17 09/10/2022 3:38 PM EDT Plan of Treatment Health Maintenance Due Date Last Done Comments Colorectal Cancer Screening: Annual FOBT 2002 Colorectal Cancer Screening: Colonoscopy 2002 Colorectal Cancer Screening: Sigmoidoscopy 2002 Hepatitis B Vaccine (2 of 3 - Hep B Twinrix risk 3-dose series) 05/27/2013 04/29/2013 Pneumococcal Vaccine: 50+ Ye ars (2 of 2 - PCV) 04/29/2014 04/29/2013 Diabetes: Ophthalmology Exam 03/27/2021 Diabetes: Pedal Pulse Checked 03/27/2021 Diabetes: Sensory Foot Exam 03/27/2021 Diabetes: Visual Foot Exam 03/27/2021 Diabetes: Hemoglobin A1C 07/30/2024 025, 02/23/2022, 09/26/2021, Additional history exists Influenza Vaccine (Season Ended) 2024 02/24/20 22 Pneumococcal Vaccine: Peds ( 0 to 5 Years) and At-Risk Patients (6 to 49 Years) Discontinued 04/29/2013 Procedures Procedure Name Priority Date/Time Associated Diagnosis Comments HEMOGLOBIN A1C Routine 09/26/2021 4:28 PM EDT Hypertension Chronic kidney disease due to hypertension Type 2 diabetes mellitus without complication (HCC) Stage 3b chronic kidney disease (HCC) from Last 3 Months or Most Recently Relevant to Health Maintenance Results * (ABNORMAL) Hemoglobin A1c (09/26/2021 4:28 PM EDT) Hemoglobin A1C 9.3(H) (4.0-5.6) % [facility] Comment: MONITORING: In known diabetic patients, hemoglobin A1c targets should be discussed with health care provider. DIAGNOSTIC USE: ??The [place] Diabetes Association (ADA) and the World Health Organization (WHO) recommend the use of HbA1c to diagnose diabetes using a threshold of 6.5%. Patients who have an HbA1c between 5.7% and 6.4% are considered at increased risk for developing diabetes in the future. CAUTION: Falsely low HbA1c results may be observed in patients with hemolytic anemia, homozygous forms of abnormal hemoglobin (e.g. SS, CC, SC), , recent blood loss or hemoglobin F greater than 7%. Fructosamine may be used as an alternate test in these cases. REFERENCE: ADA: Standards of Medical Care in Diabetes 2020, The Journal of Clinical and Applied Research and Education Volume 43, Supplement 1 Testing performed or reported by [facility] [employer], a Service of [facility], [address] [place] [id number] Hiram Reyes MD, Horn Player [facility]# [id number] Blood (Blood, Venous) 09/26/2021 4:28 PM EDT 09/26/2021 4:35 PM EDT us Bethany SUÁREZ LAB BLOOD ORDERABLES Final Re sult [facility] from Last 3 Months or Most Recently Relevant to Health Maintenance Insurance [place] Care Teams Armored Car Driver Relationship Specialty Start Date End Date Kailash Hester MD [address] [place] [id number] PCP - General Internal Medicine 04/04/23
--- OUTSIDE RECORDS SUMMARY | 2024-08-25 14:10 | XMS_ITS | Encounter Summary ---
Author Organization [facility] Address [address] [place] [address] Care Team Providers Care Wind Operations Manager Name Role Phone Kailash Hester MD Primary Care Provider [phone] Hector Agee MD Unavailable [phone] Encounter Details Date Type Department Care Team Description 04/27/2022 [facility] Medical Records [address] [place] [address] Abstract, Provider Social History Tobacco Use Types [...] Name Priority Date/Time Associated Diagnosis Comments OUTSIDE PLAIN FILM Routine 04/27/2022 documented in this encounter Results * OUTSIDE PLAIN FILM (04/27/2022) Provider Default RADIOLOGY documented in this encounter Visit Diagnoses Not on filedocumented in this encounter Care Teams Wind Operations Manager Relationship Specialty Start Date End Date Kailash Hester MD PCP - General Internal Medicine 03/07/18 Hector Agee MD Specialist Cardiology 03/05/22 documented as of this encounter
--- OUTSIDE RECORDS SUMMARY | 2024-08-25 14:10 | XMS_ITS | Encounter Summary ---
Author Organization [facility] Address [address] [place] [address] Care Team Providers Care Tooling Engineer Name Role Phone Kailash Hester MD Primary Care Provider [phone] Hector Agee MD Unavailable [phone] Encounter Details Date Type Department Care Team Description 07/12/2021 [facility] Medical Records [address] [place] [address] Abstract, Provider Social History Tobacco Use Types [...] as of this encounter Plan of Treatment Scheduled Orders Name Type Priority Associated Diagnoses Orde r Schedule OUTSIDE LAB Lab Routine Ordered: 06/27 documented as of this encounter Visit Diagnoses Not on filedocumented in this encounter Care Teams Tooling Engineer Relationship Specialty Start Date End Date Kailash Hester MD PCP - General Internal Medicine 03/07/18 Hector Agee MD Specialist Cardiology 03/05/22 documented as of this encounter
--- OUTSIDE RECORDS SUMMARY | 2024-08-25 14:10 | XMS_ITS | Encounter Summary ---
Author Organization [facility] Address [address] [place] [address] Care Team Providers Care Mother Baby Rn Name Role Phone Kailash Hester MD Primary Care Provider [phone] Hector Agee MD Unavailable [phone] Encounter Details Date Type Department Care Team Description 09/07/2020 Orders Only Internal Medicine - [address], [address] [place] [address] Kailash Hester MD [address] [place] [address] Social History Tobacco Use Types Packs/Day Years [...] have Coronavirus / COVID-19? No / Unsure 09/05/2020 10:31 AM EDT documented as of this encounter Plan of Treatment Not on file documented as of this encounter Visit Diagnoses Not on filedocumented in this encounter Care Teams Mother Baby Rn Relationship Specialty Start Date End Date Kailash Hester MD PCP - General Internal Medicine 03/07/18 Hector Agee MD Specialist Cardiology 03/05/22 documented as of this encounter
--- OUTSIDE RECORDS SUMMARY | 2024-08-25 14:10 | XMS_ITS | Encounter Summary ---
Author Organization [facility] Address [address] [place] [address] Care Team Providers Care Auditing Specialist Name Role Phone Kailash Hester MD Primary Care Provider [phone] Hector Agee MD Unavailable [phone] Encounter Details Date Type Department Care Team Description 12/04/2018 Mobile Application Development Lead Report Medical Records [address] [place] [address] Abstract, Provider Social History Tobacco Use Types [...] on filedocumented in this encounter Care Teams Auditing Specialist Relationship Specialty Start Date End Date Kailash Hester MD PCP - General Internal Medicine 03/07/18 Hector Agee MD Specialist Cardiology 03/05/22 documented as of this encounter
--- OUTSIDE RECORDS SUMMARY | 2024-08-25 14:10 | XMS_ITS | Encounter Summary ---
Author Organization [facility] Address [address] [place] [address] Care Team Providers Care Parts Clerk Plant Maintenance Name Role Phone Kailsah Hester MD Primary Care Provider [phone] Hector Agee MD Unavailable [phone] Reason for Visit * Reason Comments E-prescribe Rx Request Encounter Details Date Type Department Care Team Description 09/14/2018 Refill Internal Medicine - [address], [address] [place] [address] Kailash Hester MD [address] [place], [place] [id number] E-prescribe Rx Request Social History Tobacco Use [...] encounter Miscellaneous Notes * Telephone Encounter - Daily Dejon - 09/15/2018 9:30 AM EDT Patient would like script to be: E-PRESCRIBED/FAXED TO PHARMACY WHEN WAS THE PATIENT'S LAST APPOINTMENT IN ADULT MEDICINE? WHEN WAS THE LAST TIME THE PATIENT SAW THEIR PCP? Does patient have an upcoming appointment? Yes 09/25/2018 (THE MEDICATION REQUESTED IS ON THE MED LIST ABOVE) All of the medications requested were on the CURRENT MEDS list Did you check the Pharmacy information above?: YES Patient wants: 30 -day supply Is this a mail order prescription request ? NO If the refill is from a FAXED refill request what is the RX # listed on the fax? N/A Patients current insurance carrier is: [place] / [place] / Product Type: MEDICARE [id number] documented in this encounter Plan of Treatment Not on file documented as of this encounter Visit Diagnoses Not on filedocumented in this encounter Care Teams Parts Clerk Plant Maintenance Relationship Specialty Start Date End Date Kailash Hester MD PCP - General Internal Medicine 03/07/18 Hector Agee MD Specialist Cardiology 03/05/22 documented as of this encounter
--- OUTSIDE RECORDS SUMMARY | 2024-08-25 14:10 | XMS_ITS | Encounter Summary ---
Author Organization [facility] Address [address] [place] [address] Care Team Providers Care Associate Professor Physician Name Role Phone Kailash Hester MD Primary Care Provider [phone] Hector Agee MD Unavailable [phone] Reason for Visit * Reason Comments E-prescribe Rx Request Encounter Details Date Type Department Care Team Description 02/07/2020 Refill Internal Medicine - [address], [address] [place] [address] Kailash Hester MD [address] [place] [address] E-prescribe Rx Request Social History Tobacco Use [...] Telephone Encounter - Claudia Malcolm M.A. - 02/17/2020 1:58 PM EDT Lab Results Component Value Date NA 138 06/27/2018 K 4.3 06/27/2018 CO2 27 06/27/2018 CL 103 06/27/2018 BUN 30 06/27/2018 CREAT 1.83 12/21/2019 GLU 301 06/27/2018 ALB 3.9 06/27/2018 CA 8.9 06/27/2018 GFR 37 12/21/2019 * Telephone Encounter - Esther Torres - 02/17/2020 1:28 PM EDT DULCE MARIA 10/12/2019 No future appt, left voicemail for patient to book. 90 day supply. documented in this encounter Plan of Treatment Not on file documented as of this encounter Visit Diagnoses Not on filedocumented in this encounter Care Teams Associate Professor Physician Relationship Specialty Start Date End Date Kailash Hester MD PCP - General Internal Medicine 03/07/18 Hector Agee MD Specialist Cardiology 03/05/22 documented as of this encounter
--- OUTSIDE RECORDS SUMMARY | 2024-08-25 14:10 | XMS_ITS | Encounter Summary ---
Author Organization [facility] Address [address] [place] [address] Care Team Providers Care Senior Java Architect Name Role Phone Kailash Hester MD Primary Care Provider [phone] Hector Agee MD Unavailable [phone] Encounter Details Date Type Department Care Team Description 07/30/2022 Supervisor Sanding Report Medical Records [address] [place] [address] Social History Tobacco Use Types Packs/Day Years [...] suspected to have Coronavirus/COVID-19? No / Unsure 07/25/2022 1:03 PM EDT documented as of this encounter Plan of Treatment Not on file documented as of this encounter Visit Diagnoses Not on filedocumented in this encounter Care Teams Senior Java Architect Relationship Specialty Start Date End Date Kailash Hester MD PCP - General Internal Medicine 03/07/18 Hector Agee MD Specialist Cardiology 03/05/22 documented as of this encounter
--- OUTSIDE RECORDS SUMMARY | 2024-08-25 14:10 | XMS_ITS | Encounter Summary ---
Author Organization [facility] Address [address] [place] [address] Care Team Providers Care Mail Censor Name Role Phone Kailash Hester MD Primary Care Provider [phone] Hector Agee MD Unavailable [phone] Encounter Details Date Type Department Care Team Description 12/16/2019 Orders Only Radiology - [place] [id number] [place] [address] Jaquan King MD [address] [facility] [address] [place] [address] Diabetes mellitus without complication (HCC) (Primary Dx) Social History Tobacco Use Types [...] documented as of this encounter Results * (ABNORMAL) CREATININE, BLOOD ASSAY (12/21/2019 12:38 PM EDT) CREAT 1.83(H) 0.7 - 1.3 mg/dL 12/21/2019 5:14 PM EDT [facility] GLOMERULAR FILTRATION RATE 37 12/21/2019 5:14 PM EDT [facility] Comment: If patient is -Ecuadorean, multiply result by 1.21 Chronic Kidney Disease: < 60 ml/min/1.73 square meters Kidney Failure: < 15 ml/min/1.73 square meters 12/21/2019 12:3 8 PM EDT 12/21/2019 12:42 PM EDT Jaquan King MD LAB [facility] documented in this encounter Visit Diagnoses Diagnosis Diabetes mellitus without complication (HCC)- Primary Type II or unspecified type diabetes mellitus without mention of complication, not stated as uncontrolled documented in this encounter Care Teams Mail Censor Relationship Specialty Start Date End Date Kailash Hester MD PCP - General Internal Medicine 03/07/18 Hector Agee MD Specialist Cardiology 03/05/22 documented as of this encounter
--- OUTSIDE RECORDS SUMMARY | 2024-08-25 14:10 | XMS_ITS | Encounter Summary ---
Author Organization [facility] Address [address] [place] [address] Care Team Providers Care Camera Tuning Engineer Name Role Phone Kailash Hester MD Primary Care Provider [phone] Hector Agee MD Unavailable [phone] Encounter Details Date Type Department Care Team Description 02/27/2024 Orders Only Medical Records [address] [place] [address] Jaquan King MD [address] [place] [address] [address] [place] [address] Social History Tobacco Use Types Packs/Day Years [...] Name Priority Date/Time Associated Diagnosis Comments OUTSIDE COLONOSCOPY Routine 02/24/2024 documented in this encounter Results * OUTSIDE COLONOSCOPY (02/24/2024) Jaquan King MD RADIOLOGY documented in this encounter Visit Diagnoses Not on filedocumented in this encounter Care Teams Camera Tuning Engineer Relationship Specialty Start Date End Date Kailash Hester MD PCP - General Internal Medicine 03/07/18 Hector Agee MD Specialist Cardiology 03/05/22 documented as of this encounter
--- OUTSIDE RECORDS SUMMARY | 2024-08-25 14:10 | XMS_ITS | Encounter Summary ---
Author Organization [facility] Address [address] [place] [address] Care Team Providers Care Supervisor Hide House Name Role Phone Kailash Hester MD Primary Care Provider [phone] Hector Agee MD Unavailable [phone] Reason for Visit * Reason Comments E-prescribe Rx Request Encounter Details Date Type Department Care Team Description 12/07/2021 Refill Internal Medicine - [address], [address] [place] [address] Kailash Hester MD [address] [place] [address] E-prescribe Rx Request Social History Tobacco Use [...] Miscellaneous Notes * Telephone Encounter - Martina Chavarria - 12/08/2021 2:53 PM EDT Lab Results Component Value Date CHOL 178 02/24/2020 LDL 61 02/24/2020 HDL 40 02/24/2020 TRIG 386 02/24/2020 SGOT 21 01/31/2021 SGPT 25 01/31/2021 * Telephone Encounter - Brenda Mitchell - 12/08/2021 12:51 PM EDT Samir 02/21/21 Left message to contact office documented in this encounter Plan of Treatment Not on file documented as of this encounter Visit Diagnoses Not on filedocumented in this encounter Care Teams Supervisor Hide House Relationship Specialty Start Date End Date Kailash Hester MD PCP - General Internal Medicine 03/07/18 Hector Agee MD Specialist Cardiology 03/05/22 documented as of this encounter
== END 2024-08-25 12:02 | disposition home or self-care (01) ==
LOC: HO.LAB 12:01
PROVIDERS: PCP Internal Medicine; Visit Provider Urology
DX: E11.9 Type 2 diabetes mellitus without complications (principal); N52.8 Other male erectile dysfunction
CPT/HCPCS: 36415; 80048; 83036; 85025; 85610; 85730; 87086

== ENCOUNTER 2024-11-11 10:33 | Outpatient (AMB) | payer MEDICARE, MEDICAID, SELFPAY ==
--- NOTE | 2024-11-11 11:09 | MHC.OFFVIS ---
Intake Visit Reasons: 3m cidp Allergies No Known Allergies Allergy (Verified 01/24/24 09:43) Medication List - Last Reconciled 11/11/24 by Cedric Nguyen MD aspirin 81 mg PO DAILY atorvastatin 80 mg PO BEDTIME duloxetine 60 mg PO QPM empagliflozin (Jardiance) 10 mg PO QAM erenumab-aooe (Aimovig Autoinjector) mg subcut fenofibric acid (choline) 45 mg PO BEDTIME gabapentin 600 mg PO ONCE insulin aspart U-100 (Novolog FlexPen U-100 Insulin aspart) 50 units subcut DAILY insulin glargine (Lantus Solostar U-100 Insulin) 0 - 100 units subcut DAILY lisinopril 10 mg PO DAILY memantine (Namenda) 10 mg PO QPM methylphenidate HCl 20 mg PO BID pantoprazole 40 mg PO DAILY prednisone 20 mg PO DAILY prednisone 5 mg PO DAILY topiramate 100 mg PO BID HPI Comments Details: 69 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 His EMG/NCS revealed sensory and notor peripheral neuropathy with features of demylination and axonal loss. CSF protein was 66 with 7 WBCs. Etilology was unclear. He was getting along. Walking was same and he was able to walk with a white cane for direction. Breathing was ok. Swallowing was ok. He stopped using prednisone and was using gabapentin 600 mg 1 at night. For headaches, he was using topiramate 100 mg a day with Aimovig injection every month. He said that Aimovig has helped a lot [facility] Medical History (Updated 11/11/24 @ 11:13 by Cedric Nguyen MD) Depression CIDP (chronic inflammatory demyelinating polyneuropathy) Peripheral neuropathy Multifactorial gait disorder Diabetic neuropathy Carpal tunnel syndrome, bilateral Back pain Cataract (lens) fragments in eye following cataract surgery, bilateral CKD (chronic kidney disease) stage 3, GFR 30-59 ml/min Type 2 diabetes mellitus Elevated cholesterol Hypertension Chronic migraine with aura Optic disc atrophy, bilateral Legally blind Surgical History (Updated 01/24/24 @ 09:50 by Helen Trimble RN) Hx of cholecystectomy H/O colonoscopy S/P TURP Review of Systems Const Details: Constitutional:?No fever, chills, fatigue, weight loss, or night sweats. HEENT:?No headache, vision changes, hearing loss, nasal congestion, sore throat. Neurological:? Numbness and unsteadiness of gait Psychiatric:?No anxiety, depression, mood swings, sleep disturbance, or hallucinations. Endocrine:?No heat/cold intolerance, polydipsia, polyuria, or hair/skin changes. Hematologic/Lymphatic:?No easy bruising, bleeding, or lymphadenopathy. Integumentary (Skin):?No rash, lesions, itching, or color changes. ? Physical Exam Neuro Other: Mental Status: Alert and oriented to person, place, and time. Normal attention. Normal spontaneous speech, fluency, and comprehension. No obvious issues with mood and memory. Affect is appropriate. Cranial Nerves: CN II: Visual gee full to confrontation, visual acuity significantly diminished. CN III, IV, : Pupils equal, round, reactive to light and accommodation. Extraocular movements are normal. CN V: Facial sensation is normal. CN VII: Facial movements symmetrical. CN VIII: Hearing intact to bedside conversation is normal. CN IX, X: Palate elevates symmetrically. CN XI: Shoulder shrug and head turn symmetrical. CN XII: Tongue midline without atrophy or fasciculations. Extrapyramidal: Full facial expressions and blinking. No rigidity. Movements are appropriate with no tremor or abnormality. Speech: Normal; no dysarthria or tremor. Assessment & Plan Assessment & Plan (1) CIDP (chronic inflammatory demyelinating polyneuropathy): Comment: LP at [facility] in Feb 2024: OP 12 cm, WBCs 7, RBCs 20, Glu 97, Pro 66.4, IgG ind: Neg, OCBs neg. NCV/EMG LE Moderate to severe sensory and motor chronic peripheral neuropathy with features of axonal loss and demyelination. Right lower lumbar radiculopathy. 11/11/23. NCV/EMG UE Moderately severe axonal sensory and motor peripheral neuropathy. 12/26/23 Code(s): G61.81 - Chronic inflammatory demyelinating polyneuritis Category: Medical (2) Migraine without aura: Code(s): G43.009 - Migraine without aura, not intractable, without status migrainosus Category: Medical Qualifiers: Status migrainosus presence: without status migrainosus Intractability: not intractable Qualified Code(s): G43.009 - Migraine without aura, not intractable, without status migrainosus (3) Congenital blindness: Code(s): H54.7 - Unspecified visual loss Category: Medical Plan Impression: a: CIDP b: Migraine without aura Rec: a: Gabapentin 600mg one a day at bedtime b: Topamax 100mg a day c: Aimovig 140mg SC monthly Coding Level of Care Code Est Pt Level 4 (18438) Diagnoses CIDP (chronic inflammatory demyelinating polyneuropathy) G61.81 Migraine without aura and without status migrainosus, not intractable G43.009 Status migrainosus presence: without status migrainosus Intractability: not intractable Congenital blindness H54.7
--- OUTSIDE RECORDS SUMMARY | 2024-11-11 11:09 | XMS_ITS | Clinical Summary ---
Author Organization [address] [place] [address] Address [address] [place] [address] Phone Care Team Providers Care Cashier Clerk Name Role Phone Kailash Hester MD Primary Care Provider [phone] Allergies No known active allergies Medications aspirin 81 mg EC tablet 81 mg daily. 7 Active pen needle, diabetic 32 gauge x needle 9 Active multivitamin (DAILY VITAMIN ORAL) CALCIUM-VITAMIN D-VITAMIN K (CALCIUM + D + K) 750-500-40 MG-UNT-MCG TAB daily. 7 Active coenzyme Q-10 10 mg capsule Take by mouth daily. Active multivit-min/f olic acid/lutein (CENTRUM SILVER ORAL) TAKE 1 TABLET DAILY. 7 Active NIACIN, BULK, MISC Take 100 mg by mouth daily. Active atorvastatin (LIPITOR) 40 mg tablet TAKE 1 TABLET EVERY DAY 3 Active bisacodyL (DULCOLAX) 5 mg EC tablet Take 2 tabs by mouth right before beginning bowel prep. Follow instructions given by office for timing. 4 Active calcium carbonate EX (Antacid Extra-Strength ) 300 mg (750 mg) chewable tablet Active cholecalcifero l (VITAMIN D-3) 25 mcg (1,000 unit) tablet [...] into the vein every 30 days. Active gabapentin (NEURONTIN) 600 mg tablet 2 [...] mL (18 mg/3 mL) injection 9 Active memantine (NAMENDA) 10 mg tablet TAKE 1 TABLET BY MOUTH TWICE A DAY FOR MEMORY 8 Active topiramate (TOPAMAX) 200 mg tablet Take 200 mg by mouth at bedtime as needed. Active metoclopramide (REGLAN) 5 mg tablet Take 1 tablet (5 mg total) by mouth 4 (four) times a day (before meals and nightly). 120 each 3 5 026 Active ergocalciferol (VITAMIN D-2) 1,250 mcg (50,000 unit) capsule Take 1 capsule (50,000 Units total) by mouth 1 (one) time per week. 12 each 5 026 Active fluticasone propionate (FLONASE) 50 mcg/actuation nasal spray SPRAY 2 SPRAYS INTO EACH NOSTRIL EVERY DAY 48 mL 1 5 Active methylphenidat e (RITALIN) 10 mg tablet Take 1 tablet (10 mg total) by mouth 2 (two) times daily before breakfast and lunch. Max Daily Amount: 20 mg 5 Active lisinopriL (PRINIVIL,ZEST RIL) 2.5 mg tablet Take 1 tablet (2.5 mg total) by mouth 1 (one) time each day. 30 each 5 5 025 Active pantoprazole (PROTONIX) 40 mg EC tablet Take 1 tablet (40 mg total) by mouth 1 (one) time each day. Do not crush, chew, or split. 90 tablet 5 Active pantoprazole (PROTONIX) 40 mg EC tablet Take 1 tablet (40 mg total) by mouth 1 (one) time each day. Do not crush, chew, or split. 90 tablet 3 5 025 Discontin ued(Reord er) pantoprazole (PROTONIX) 40 mg EC tablet Take 1 tablet (40 mg total) by mouth 1 (one) time each day. Do not crush, chew, or split. 90 tablet 5 025 Discontin ued(Reord er) Active Problems Problem Noted Date Diagnosed Date Overweight (BMI 25.0-29.9) 07/28/2024 Atypical chest pain 05/09/2022 Cortical senile cataract of right eye 04/19/2020 Right bundle branch block (RBBB) 04/19/2020 Hyperplastic polyp of stomach 09/19/2018 SSBE (short-segment Isidro's esophagus) 019 Carpal tunnel syndrome 03/25/2018 DM (diabetes mellitus), type 2 with peripheral vascular complications ([facility] V24, [facility] V28) 03/25/2018 Type 2 diabetes mellitus wit h renal manifestations ([facility] V24, [facility] V28) 03/25/2018 Chronic kidney disease (CKD) 01/09/2018 Hypertension 01/09/2018 Memory change 08/09/2017 Migraines 08/09/2017 Obstructive sleep apnea 07/31/2017 Overview (03/24/2024): BIPAP 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 Legally blind 05/28/2017 Diabetes mellitus type 2 wit h neurological manifestations ([facility] V24, [facility] V28) 03/04/2017 Diabetic neuropathy ([facility] V24, CMS/[facility] V28) 1 05/04/2016 GERD (gastroesophageal reflux disease) 7 Hyperlipidemia 03/04/2017 Vitamin D deficiency 12/10/2016 Hearing difficulty, bilateral 10/18/2016 Tinnitus 10/18/2016 Anxiety 06/10/2016 Attention-deficit/hyperactivity disorder 017 Extremity atherosclerosis wi th intermittent claudication ([facility]/HCC V24) 06/10/2016 Tubular adenoma of colon 06/10/2016 Benign prostate hyperplasia 02/10/2016 Fatty liver 02/10/2016 Depression 11/10/2015 Encounters Date Type Department Care Team Description 10/26/2024 Telephone Gastroenterology [address] [phone] Yennifer Paige PA medication 10/12/2024 Telephone Internal Medicine [address] [phone] Kailash Hester MD 10/07/2024 3:30 PM EDT Office Visit Internal Medicine [address] [place] [phone] Kailash Hester MD Primary hypertension (Primary Dx); Hypercholesterolemia; Diabetes mellitus type 2 with neurological manifestations (CMS/HCC V24, CMS/HCC V28); Hypogonadism in male 09/29/2024 Telephone Internal Medicine - [address] [place] [phone] Kailash Hester MD Hypotension 09/14/2024 [place] [facility] [address] [phone] Kailash Hester MD Joseph: TB test 09/01/2024 10:00 AM EDT Telemedicine Bariatric Surgery - [address] [place] [phone] Dian Muñoz RD Overweight (BMI 25.0-29.9) (Primary Dx) from Last 3 Months Immunizations Name Administration [...] mellitus type 2 wit h neurological manifestations (CMS/HCC V24, CMS/HCC V28) 03/04/2017 DX:Diabetes mellitus type 2 with neurological manifestations (HCC) Diabetic neuropathy (CMS/HCC V24, CMS/HCC V28) 03/04/2017 DX:Diabetic neuropathy (HCC) DM (diabetes mellitus), type 2 with peripheral vascular complications (CMS/HCC V24, CMS/HCC V28) 03/25/2018 DX:DM (diabetes mellitus), type 2 with peripheral vascular complications (HCC) Extremity atherosclerosis wi th intermittent claudication (CMS/HCC V24) 06/10/2016 DX:Extremity atherosclerosis with intermittent claudication [...] 2 diabetes mellitus wit h renal manifestations (CMS/HCC V24, CMS/HCC V28) 03/25/2018 DX:Type 2 diabetes mellitus with [...] Sign Reading Time Taken Comments Blood Pressure 100/60 10/07/2024 3:23 PM EDT Pulse 98 10/07/2024 3:23 PM EDT Temperature 35.9 C (96.6 F) 10/07/2024 3:23 PM EDT Respiratory Rate - - Oxygen Saturation 97% 10/07/2024 3:23 PM EDT Inhaled Oxygen Concentration - - Weight 85.7 kg (189 lb) 10/07/2024 3:23 PM EDT Height 175.3 cm (5' 9 ) 07/17/2024 11:28 AM EDT Body Mass Index 27.91 07/17/2024 11:28 AM EDT Plan of Treatment Upcoming Encounters Date Type Department Care Team (Late st Contact Info) Description 11/12/2024 10:30 AM EDT Telemedicine Bariatric Surgery [address] [phone] Ciara Mata, RD [address] [phone] 11/12/2024 2:00 PM EDT Office Visit Bariatric Surgery - [address] [phone] Sheila Zarco MD [address] [phone] 04/13/2025 1:00 PM EST Office Visit Internal Medicine [address] [phone] Kailash Hester MD [address] [address] Health Maintenance Due Date Last Done Comments COVID-19 Vaccine (#1) 1960 Diabetes: Annual Foot Exam 09/01/1963 Diabetes: Annual Retina Eye Exam 09/01/1963 Hepatitis B Vaccines (2 of 3 - Hep B Twinrix 3-dose series) 05/27/2013 04/29/2013 RSV Immunization Adult Patients (1 - Risk 60-74 years 1-dose series) 2013 Zoster Vaccines (1 of 2) 06/24/2014 04/29/2014 Pneumococcal Vaccine: 50+ Years (2 of 2 - PCV) 02/06/2020 02/05/2019, 04/29/2013 Falls Risk Assessment 04/07/2022 Hepatitis C Screening 04/07/2022 Social Influencers of Health Screening 04/07/2022 Depression Screening 07/14/2024 07/15/2023 Medicare Annual Wellness Visit 07/14/2024 07/15/2023 Diabetes: Blood Sugar Control Test (HGBA1C) 10/29/2024 05/01/2024, 02/23/2022, 09/26/2021 Influenza Vaccine (#1) 2024 , 02/23/2022, 01/14/2021, Additional history exists Diabetes: Annual [...] Procedure Name Priority Date/Time Associated Diagnosis Comments INTERFERON GAMMA INTERPRETATION Routine 09/17/2024 9:19 AM EDT Preventative health care INTERFERON GAMMA ANTIGEN 2 Routine 09/17/2024 9:19 AM EDT Preventative health care INTERFERON GAMMA ANTIGEN 1 Routine 09/17/2024 9:19 AM EDT Preventative health care INTERFERON GAMMA MITOGEN Routine 09/17/2024 9:19 AM EDT Preventative health care INTERFERON GAMMA NIL Routine 09/17/2024 9:19 AM EDT Preventative health care INTERFERON GAMMA FOR TB, QUALITATIVE Routine 09/17/2024 9:19 AM EDT Preventative health care EXTERNAL CLINICAL LAB 08/25/2024 COLONOSCOPY Routine 02/24/2024 ANNUAL BMP BLOOD TEST Routine 12/06/2023 DEPRESSION SCREENING Routine 07/15/2023 HEMOGLOBIN A1C Routine 02/23/2022 LIPID PANEL Routine 02/23/2022 URINE ALBUMIN CREATININE RATIO Routine 01/31/2021 from Last 3 Months or Most Recently Relevant to Health Maintenance Results * Interferon gamma interpretation (09/17/2024 9:19 AM EDT) [facility] Signature Quantiferon Plus Interpretation Negative Negative LAB CHEMISTRY METHOD 09/18/2024 12:04 PM EDT [facility] Blood Venous blood specimen / Unknown Venipuncture / Unknown 09/17/2024 9:19 AM EDT 09/17/2024 9:19 AM EDT us Kailash Hester MD LAB BLOOD ORDERABLES Final Resul t Performing Organization Address City/[facility]/ZIP Co de Phone Number [facility] [address] [place] [address], [place] [phone] * Interferon gamma antigen 2 (09/17/2024 9:19 AM EDT) Blood Venous blood specimen / Unknown Venipuncture / Unknown 09/17/2024 9:19 AM EDT 09/17/2024 9:19 AM EDT us Kailash Hester MD LAB BLOOD ORDERABLES Final Resul t Performing Organization Address [facility]/ZIP Co de Phone Number [facility] [address] [place] [address], [place] [phone] * Inteferon gamma antigen 1 (09/17/2024 9:19 AM EDT) Blood Venous blood specimen / Unknown Venipuncture / Unknown 09/17/2024 9:19 AM EDT 09/17/2024 9:19 AM EDT us Kailash Hester MD LAB BLOOD ORDERABLES Final Resul t Performing Organization Address [facility] Co de Phone Number [facility] [address] [place] [address], [place] [phone] * Interferon gamma mitogen (09/17/2024 9:19 AM EDT) Blood Venous blood specimen / Unknown Venipuncture / Unknown 09/17/2024 9:19 AM EDT 09/17/2024 9:19 AM EDT Kailash Hester MD LAB BLOOD ORDERABLES Final Resul t Performing Organization Address [facility]/ZIP Co de Phone Number [facility] [address] [place] [address], * Interferon gamma NIL (09/17/2024 9:19 AM EDT) Blood Venous blood specimen / Unknown Venipuncture / Unknown 09/17/2024 9:19 AM EDT 09/17/2024 9:19 AM EDT Kailash Hester MD LAB BLOOD ORDERABLES Final Resul t Performing Organization Address [facility] de Phone Number [facility] [address] [place] [address], * External clinical lab (08/25/2024) Provider Don Onbase LAB BLOOD ORDERABLES Fin al Result * Colonoscopy (02/24/2024) [facility] Colonoscopy No Interpretation , Abstracted Anatomical Region Laterality Modality Other Result [facility] Provider HEALTH MAINTENANCE Final Result * Annual BMP Blood Test (12/06/2023) [facility] Annual BMP Blood Test Abstracted [facility] Skinny [facility] HEALTH MAINTENANCE Final Result * Depression Screening (07/15/2023) [facility] Depression Screening Abstracted [facility] HEALTH MAINTENANCE Final Result * (ABNORMAL) Hemoglobin A1c (02/23/2022) [facility] Hemoglobin A1C 9.8(A) <=6.5 % Blood Venous blood specimen / Unknown Result [facility] LAB BLOOD ORDERABLES Stella l Result * (ABNORMAL) Lipid panel (02/23/2022) LDL/HDL Ratio 5(A) 0 - 4 Triglycerides 224(A) 0 - 150 mg/dL Cholesterol 193 0 - 200 mg/dL HDL 38(A) >=40 mg/dL LDL Cholesterol 111(A) 0 - 100 mg/dL Blood Venous blood specimen / Unknown Historical Provider LAB BLOOD ORDERABLES Stella l Result * Urine Albumin Creatinine Ratio (01/31/2021) Urine Albumin Creatinine Ratio Abstracted Historical Provider HEALTH MAINTENANCE Final Result from Last 3 Months or Most Recently Relevant to Health Maintenance Insurance MEDICARE MEDICAID - [place] Advance Directives Documents on File Type Date Recorded Patient Financial Aid Counselor Expl anation Health Care Decision (hx) 05/25/2013 [...] (hx) 05/11/2013 AD BARROW DIRECTIVE Care Teams Cashier Clerk Relationship Specialty Start Date End Date Kailash Hester MD [address] [place] [id number] PCP - General Internal Medicine 05/15/24
--- OUTSIDE RECORDS SUMMARY | 2024-11-11 11:09 | XMS_ITS | Patient Health Record ---
Author Organization [facility] Address [address] [place] [address] Care Team Providers Care Primary Care Coordinator Name Role Phone Sven Mendiola Primary Care Provider [phone] Juliette Bob Unavailable Unavailable Allergies No Known Allergies Reason For Referral No Information Medications Medication SIG (Take, Route, Frequency, Duration) Notes Start Date End Date Status AIMOVIG 140 MG/ML AUTOINJECTOR 1 Inject 1 pre-filled syringe every 28 days. for 30 *please review for potential _update for e-prescription and drug interaction check* 08/20/2019 Active Topamax 50 MG 2 tablets at bedtime Orally Once a day for 30 day(s) Active ASPIRIN EC 81 MG TABLET 0 1 qam for 30 *please review for potential _update for e-prescription and drug interaction check* 03/07/2017 Active Aimovig 140 MG/ML INJECT 1 AUTOINJECTOR SUBCUTANEOUS ONCE PER MONTH 30 DAYS for 30 days Active ACETAMINOPHEN 500 MG CAPLET 0 2 tabs bid + 2 prn, uses 20-25/week for 30 *please review for potential _update for e-prescription and drug interaction check* 03/27/2016 Active Multi-Vitamin 0 Oral 1 qam for 30 03/27/2016 Active VITAMIN B12 1,000 MCG TAB SA 0 1 qam for 30 *please review for potential _update for e-prescription and drug interaction check* 03/27/2016 Active Memantine HCl 10 MG TAKE 1 TABLET BY MOUTH TWICE A DAY for 90 Patient needs to call for new appt, last one was 07/06/21. Active Vitamin B-2 100 mg 120 Oral Take 2 tabs bid with meals (4 tabs qd). for 30 04/27/2016 Active VITAMIN D 1,000 UNITS SOFTGEL 0 1 qam for 30 *please review for potential _update for e-prescription and drug interaction check* 03/27/2016 Active Gabapentin 600 MG 1 tablet Orally twice a day Active LANTUS SOLOSTAR 100 UNITS/ML 100 UNIT/ML (3 ML) 0 30 u am + 40 u qhs for 30 *please review for potential _update for e-prescription and drug interaction check* 03/27/2016 Active Topiramate 200 MG TAKE 1 TABLET BY MOUTH EVERY NIGHT FOR MIGRAINE for 90 Active Atorvastatin Calcium 40 MG 0 Oral 1 qam for 30 03/27/2016 Active OMEGA-3 KRILL OIL 1,000 MG 1,000-230-60 0 1 qam for 30 *please review for potential _update for e-prescription and drug interaction check* 03/27/2016 Active NovoLOG 100 UNIT/ML as directed Subcutaneous Active CITALOPRAM HBR 20 MG TABLET 0 1 qam for 30 *please review for potential _update for e-prescription and drug interaction check* 03/27/2016 Active Methylphenidate HCl 20 MG 20 mg in the AM, 15 mg in the afternoon Orally Twice a day Active COENZYME Q-10 100 MG SOFTGEL 0 1 qam for 30 *please review for potential _update for e-prescription and drug interaction check* 03/27/2016 Active Bipap 0 for 30 *please review for potential _update for e-prescription and drug interaction check* 05/01/2017 Active Pantoprazole Sodium 40 MG 1 tablet Orally Once a day Active CALCIUM 600 + VIT D TABLET 600 MG(1,500MG) -400 UNIT 0 750 mg 1/day for 30 *please review for potential _update for e-prescription and drug interaction check* 03/27/2016 Active Problems Problem Type SNOMED Code ICD Code Onset Dates Problem Status W/U Status Risk Notes Problem Migraine without aura, not refractory (653793246) Migraine without aura, not intractable, without status migrainosus (G43.009) Active confirmed Problem Hemiplegic migraine, intractable, 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) Active confirmed Problem Cluster headache syndrome (465721340) Cluster headache syndrome, unspecified, intractable (G44.001) Active confirmed Plan Of Treatment No Information Insurance Providers Payer Name Payer Address Payer Phone Subscriber Number Group Number Insured Name Patient Relationship to Insured Coverage Start Date Coverage End Date MEDICARE B [address] [place], [place] [id number] [phone] [id number] Joshua Becerril Self - [facility] the [facility] [address] [place] [address] [phone] [id number] Joshua Becerril Self - patient is the insured Medical (General) History Medical History History ICD Code Depression Anxiety Back pain Diabetes mellitus type 2 Hypertension Migraines Peripheral neuropathy GERD Legally blind BRIAN Chronic kidney disease stage III Cataracts Surgical History Surgery Date(Month/Year) TURP Carpal tunnel release Cholecystectomy Cataracts repair, bilateral
--- OUTSIDE RECORDS SUMMARY | 2024-11-11 11:09 | XMS_ITS | Encounter Summary ---
Author Organization [facility], Address [address] [place] [address] Phone Care Team Providers Care Border Patrol Officer Name Role Phone Kailash Hester MD Primary Care Provider [phone] Encounter Details Date Type Department Care Team (Late st Contact Info) Description 04/09/2023 Documentation Only [facility] [address] [place] [address] Oseas Guajardo MD [address] [place] [address] [place] [address] Social History Tobacco Use Types Packs/Day Years [...] as of this encounter Plan of Treatment Upcoming Encounters Date Type Department Care Team (Late Contact Info) Description 01/07/2025 12:20 PM EDT Office Visit [facility] [address] [place] [address] Oseas Guajardo MD [address] [place] [address] [place] [address] documented as of this encounter Visit Diagnoses Not on filedocumented in this encounter Care Teams Border Patrol Officer Relationship Specialty Start Date End Date Kailash Hester MD [address] [place] [id number] PCP - General Internal Medicine 04/04/23 documented as of this encounter
--- OUTSIDE RECORDS SUMMARY | 2024-11-11 11:09 | XMS_ITS | Data Portability ---
Author Organization [place] - [facility], Allergy Address [address] [address] Care Team Providers Care Piano Regulator Inspector Name Role Phone TATI STEELE Primary Care Provider Assessment Encounter Date Assessment Date Assessment LastModified by Organization Details LastModified Time 02/05/2024 02/05/2024 68-year-old male presents for cerumen removal. Cerumen removed bilaterally without difficulty. Follow-up in 6 months for repeat procedure. All questions answered. [email or web address] Not available 02/05/2024 13:23:35 Plan of Treatment Reminders Order Date Submit Date Provider Last Modified By Organization Details Last Modified Time Details Appointments None record ed. Lab None record ed. Referral None record ed. Procedures None record ed. Surgeries None record ed. Imaging None record ed. Medication Orders None record ed. Patient TargetsNo targets recorded. Patient InstructionsNo instructions recorded. Reason for Referral None Reported. Problems Name Problem SNOMED Code Status Onset Date Resolution Date Notes Provider Name and Address Organization Details Recorded Time Sensorin eural hearing loss of bilatera l ears [id number] Active 2016 Sensorin eural hearing loss, bilatera l; Note: Date Diagnose d: 11/27/2016 10:33 AM (H90.3) Not Available [facility] 4 02:23:20 Otorrhea of left ear [id number] 26935 Completed 202211/29/2023 Otorrhea , left ear; Note: Date Diagnose d: 3 12:35 PM (H92.12) Not Available [facility] 4 02:22:54 Impacted cerumen of bilatera l ears 84166403305 98424 Active 2022 Impacted cerumen, bilatera l; Note: Date Diagnose d: 3 3:01 PM (H61.23) Not Available [facility] 4 02:23:25 Impacted cerumen in left ear [id number] 17982 Active 2022 Impacted cerumen, left ear; Note: Date Diagnose d: 3 12:35 PM (H61.22) Not Available [facility] 4 02:23:22 Bilatera l tinnitus [id number] 02 Active 2016 Tinnitus , bilatera l; Note: Date Diagnose d: 11/27/2016 10:33 AM (H93.13) Not Available [facility] 4 02:22:52 Problem Notes None recorded. Procedures Surgical History Date Name Laterality Status Provider Name and Address Organization Details Recorded Time 4 Cerumen removal without microscope bilat completed JENNIFER STAHL PA-C [address] [place] [address], [phone], [facility] - [facility] 02/05/2024 13:23:21 Imaging Results None recorded. Procedure Notes None recorded. Medical Equipment None Reported. Allergies No known drug allergies Medications Name Sig Start Date Stop Date Status Note LastModified by Organization Details LastModified Time dexcom supply bundle DIRECTED 02/04 completed Not Available Not Available Not Available [facility] dexcom g7 sensor CHANGE EVERY 10 DAYS 02/04 completed Not Available Not Available Not Available atorvasta tin 40 mg tablet active Medicati on ID: [id number] D uration Value: 90 Brand Name: atorvast [...] mg tablet 02/04 completed Medicati on ID: [id number] D uration Value: 30 Brand Name: methylph [...] mg tablet 02/04 completed Medicati on ID: [id number] D uration Value: 30 Brand Name: methylph enidate HCl Send Method: E-Prescr ibed Sub s Allowed: subs OK Medic ationGen ericName : methylph enidate HCl Not Available Not Available Not Available prednison e 20 mg tablet TAKE 1 TABLET BY MOUTH EVERY DAY FOR 60 DAYS active Not Available Not Available No t Available prednison e 5 mg tablet TAKE 3 TABLETS BY MOUTH DAILY active Not Available Not Available No t Available famotidin e 20 mg tablet TAKE 1 TABLET BY MOUTH TWICE A DAY 02/04 completed Not Available Not Available Not Available metoclopr amide 5 mg tablet TAKE 1 TABLET (5 MG TOTAL) BY MOUTH 4 (FOUR) TIMES A DAY (BEFORE MEALS AND NIGHTLY) . active Not Available Not Available No t Available tamsulosi n 0.4 mg capsule TAKE 1 CAPSULE BY MOUTH EVERY DAY AT BEDTIME FOR 30 DAYS active Not Available Not Available No t Available benzonata te 100 mg capsule TAKE 1 CAPSULE BY MOUTH 3 TIMES DAILY NEEDED FOR COUGH FOR UP TO 7 DAYS. 02/04 completed Not Available Not Available Not Available insulin aspart U-100 100 unit/mL subcutane ous solution INJECT 150 U/DAY IN PUMP active Not Available Not Available No t Available pantopraz ole 40 mg tablet,de layed release TAKE 1 TABLET BY MOUTH IN THE MORNING AND 1 TABLET IN THE EVENING. DO NOT CRUSH, CHEW, OR SPLIT.. active Not Available Not Available No t Available lisinopri l 10 mg tablet TAKE ONE Tablet BY MOUTH ONCE DAILY active Not Available Not Available No t Available gabapenti n 300 mg capsule 02/04 completed Medicati on ID: [id number] D uration Value: 90 Brand Name: gabapent in Send Method: E-Prescr ibed Sub s Allowed: subs OK Medic ationGen ericName : gabapent in Not Available Not Available Not Available topiramat e 200 mg tablet 2016 active Medicati on ID: [id number] D uration Value: 30 Brand Name: topirama te Send Method: E-Prescr ibed Sub s Allowed: subs OK Speci al Instruct ion: TAKE 1 TABLET BY MOUTH AT BEDTIME Medicati onGeneri cName: topirama te Not Available Not Available Not Available lisinopri l 5 mg tablet TAKE ONE TABLET BY MOUTH EVERY DAY 02/04 completed Not Available Not Available Not Available ergocalci ferol (vitamin D2) 1,250 mcg (50,000 unit) capsule TAKE 1 CAPSULE (50,000 UNITS TOTAL) BY MOUTH ONCE WEEKLY active Not Available Not Available No t Available topiramat e 100 mg tablet TAKE ONE Tablet BY MOUTH TWICE DAILY 02/04 completed Not Available Not Available Not Available fluticaso ne propionat e 50 mcg/actua tion nasal spray,ricky pension SPRAY 2 SPRAYS INTO EACH NOSTRIL EVERY DAY active Not Available Not Available No t Available amoxicill in 875 mg-potass ium clavulana te 125 mg tablet TAKE 1 TABLET BY MOUTH TWICE A DAY FOR 10 DAYS 02/04 completed Not Available Not Available Not Available TobraDex 0.3 %-0.1 % eye drops,ricky pension Apply 4 drop 02/04 completed Medicati on ID: [id number] D uration Value: 14 Brand Name: TobraDex Send Method: E-Prescr ibed Sub s Allowed: subs OK Speci al Instruct ion: Apply 4 drops in the left EAR twice a day for 14 days Med icationG enericNa me: TobraDex Not Available Not Available Not Available insulin aspart (U-100) 100 unit/mL (3 mL) subcutane ous pen INJECT 20 UNITS UNDER THE SKIN 3 TIMES A DAY BEFORE MEALS. active Not Available Not Available No t Available tadalafil 5 mg tablet TAKE 1 TABLET BY MOUTH ONCE DAILY active Not Available Not Available No t Available duloxetin e 60 mg capsule,d elayed release TAKE 1 CAPSULE BY MOUTH ONCE A DAY AFTER SUPPER active Not Available Not Available No t Available Humfrances NaranjoPen (U-100) Insulin 100 unit/mL subcutane ous 02/04 completed Medicati on ID: [id number] D uration Value: 30 Brand Name: Cora Alonzo Send Method: E-Prescr ibed Sub s Allowed: subs OK Speci al Instruct ion: INJECT UP TO 50 UNITS A DAY DIRECTED Medicat ionGener icName: Cora Alonzo Not Available Not Available Not Available fenofibra te 40 mg tablet Take 2 tablets every day by oral route. active Not Available Not Available No t Available GaviLyte- G 236 gram-22.7 4 gram-6.74 gram-5.86 gram oral solution PLEASE SEE ATTACHED FOR DETAILED DIRECTIO NS active Not Available Not Available No t [...] completed Not Available Not Available Not Available Basaglar KwikPen U-100 Insulin 100 unit/mL (3 mL) subcutane ous UP TO 100 UNITS PER DAY DIRECTED active Not Available Not Available No t Available Aimovig Autoinjec tor 140 mg/mL subcutane ous auto-inje ctor INJECT 1 PEN INTO THE SKIN ONCE A MONTH active Not Available Not Available No t Available Baqsimi 3 mg/actuat ion nasal spray [...] completed Not Available Not Available Not Available Ozempic 0.25 mg or 0.5 mg (2 mg/3 mL) subcutane ous pen injector INJECT 0.5MG ONCE WEEKLY active Not Available Not Available No t Available Omnipod 5 G6-G7 Intro Kit(Gen 5) subcutane ous cartridge and controlle r CHANGE POD every 3 DAYS as directed 02/04 completed Not Available Not Available Not Available Omnipod 5 G6-G7 Pods (Gen 5) subcutane ous cartridge CHANGE pod every THREE DAYS as directed . active Not Available Not Available No t Available Vitals None Recorded Social History None recorded. Functional Status None recorded. Mental Status None recorded. Family History Nothing Reported. Medical History No medical history recorded. Past Encounters Encounter ID Performer Location Encounter Start Date Encounter Closed Date Diagnosis/Indication Diagnosis SNOMED-CT Code Diagnosis ICD10 Code Diagnosis Note [id number] JENNIFER STAHL PA-C [facility] [address] [phone] 02/05/2024 12:53:52 02/05/2024 13:21:33 Impacted cerumen of bilateral ears [id number] H61.23 Sensorineu ral hearing loss of bilateral ears 614635591 H90.3 Health Concerns Section Related Observation LastModified by Organization Detai ls LastModified Time None Recorded Concern Status LastModified by Organization Details LastModified Time None Recorded Advance Directives Directive None Recorded Payers Insurance Date Sequence Insurance Name Policy Number Policy Magana Covered Member ID Magana Member ID Guarantor Name 09/27/2024 1 [place] [employer] Joshua Becerril [id number] Joshua Becerril 02/05/2024 2 [place] [facility] Joshua Yiquette [id number] Joshua Yiquette 09/27/2024 2 [place] [facility] Joshua Yiquette [id number] Joshua Becerril Notes Date Note Type Note Provider Name and Address Organization Details Recorded Time 02/05/2024 text/html 68-year-old male presents for cerumen removal. No acute issues since his last visit. EVE BELTRAN MD [address] [place] [address], [phone], [place] [facility] [place] [address]/09/2024 16:31:02
--- OUTSIDE RECORDS SUMMARY | 2024-11-11 11:10 | XMS_ITS ---
Author Name [facility] Organization Unknown Encounters Encounter Type Encounter Reason Primary Diagnosis Location Date [facility]ulatory [facility] 10/19/2024 Care Team Organization Name Specialty Phone Email Start Date End [facility] [id number]
== END 2024-11-11 11:34 | disposition home or self-care (01) ==
LOC: HO.HSM 10:34
PROVIDERS: PCP Internal Medicine; Visit Provider Psychiatry & Neurology Neurology
DX: G61.81 Chronic inflammatory demyelinating polyneuritis (principal); G43.009 Migraine without aura, not intractable, without status migrainosus; H54.7 Unspecified visual loss
CPT/HCPCS: 99214

== ENCOUNTER → 2024-11-11 10:33 | Outpatient (BNVA) | payer MEDICARE, MEDICAID, SELFPAY | PROVIDERS: PCP Internal Medicine; Visit Provider Psychiatry & Neurology Neurology | DX: G61.81 Chronic inflammatory demyelinating polyneuritis (principal); G43.009 Migraine without aura, not intractable, without status migrainosus; H54.7 Unspecified visual loss; Z79.82 Long term (current) use of aspirin; Z79.4 Long term (current) use of insulin; Z79.52 Long term (current) use of systemic steroids; Z79.899 Other long term (current) drug therapy | CPT/HCPCS: 99212 ==